=== PATIENT | female | born 1945 | race Caucasian/White ===

== ENCOUNTER 2020-05-02 08:21 | Outpatient (CLI) | payer MEDICARE, SELFPAY ==
[2020-05-02 08:45] LABS: Basophils Absolute Auto 0.04 K/mm3 (0.00-0.10); Basophils Percent Auto 0.8 % (0.0-1.0); Eosinophils Absolute Auto 0.11 K/mm3 (0.02-0.50); Eosinophils Percent Auto 2.2 % (1.0-6.0); Hemoglobin 14.7 g/dL (11.7-13.8); Immature Granulocyte Absolute 0.01 K/mm3 (0.00-0.00); Immature Granulocyte Percent A 0.2 % (0.0-0.0); Lymphocytes Absolute Auto 1.93 K/mm3 (1.10-4.50); Lymphocytes Percent Auto 39.1 % (18.0-42.0); Mean Corpuscular HGB Conc 34.2 g/dL (32.0-36.0); Mean Corpuscular Hemoglobin 31.6 pg (27.0-31.0); Mean Corpuscular Volume 92.5 fL (78.0-102.0); Mean Platelet Volume 10.1 fl (9.2-11.8); Monocytes Absolute Auto 0.58 K/mm3 (0.10-0.90); Monocytes Percent Auto 11.7 % (2.0-11.0); Neutrophils Absolute Auto 2.3 K/mm3 (1.7-7.2); Platelet Count Result 259 K/mm3 (150-420); Red Blood Count 4.65 M/mm3 (4.20-5.40); Red Cell Distribution Width 13.2 % (11.6-14.4); White Blood Count 4.9 K/mm3 (4.8-10.8)
[2020-05-02 08:46] LABS: Add Urine Microscopic? NO; Appearance Urine Clear (Clear); Bilirubin Urine Negative (Negative); Blood Urine Negative (Negative); Color Urine Yellow (Yellow); Glucose Urine UA Negative (Negative); Ketones Urine Negative (Negative); Leukocyte Esterase Ur Negative LEU/UL (Negative); Nitrate Urine Negative (Negative); Protein Urine Negative (Negative); Specific Grav Ur <= 1.005 (1.010-1.020); Urobilinogen Urine 0.2 mg/dL (0.2-1.0)
[2020-05-02 09:35] LABS: Alanine Aminotransferase 37 U/L (14-59); Albumin Level 3.8 g/dL (3.4-5.0); Alkaline Phosphatase 61 U/L (46-116); Anion Gap 10.1 mmol/L (7-16); Aspartate Amino Transferase 24 U/L (15-37); Bilirubin,Total 0.5 mg/dL (0.00-1.00); Blood Urea Nitrogen 16 mg/dL (7-18); Calcium 9.1 mg/dL (8.5-10.1); Carbon Dioxide 31 mmol/L (21-32); Chloride 106 mmol/L (98-108); Cholesterol 186 mg/dL (0-200); Creatine Kinase 79 U/L (26-192); Estimated Glomerular Filt Rate 59; Free T3 2.54 pg/mL (2.18-3.98); Free T4 Free Thyroxine 0.99 ng/dL (0.76-1.46); Glucose 104 mg/dL (70-99); HDL Direct 65 mg/dL (40-60); LDL Cholesterol Calculated 110 mg/dL (<130); Osmolality Calculated 297 mOsm/kg (285-295); Potassium 4.1 mmol/L (3.5-5.1); Sodium 143 mmol/L (136-145); Thyroid Stimulating Hormone 2.66 uIU/mL (0.36-3.74); Total Protein 6.5 g/dL (6.4-8.2); Triglycerides 55 mg/dL (0-150)
== END 2020-05-02 08:22 | disposition home or self-care (01) ==
PROVIDERS: PCP Internal Medicine; Visit Provider Internal Medicine
DX: E78.2 Mixed hyperlipidemia (principal); I10 Essential (primary) hypertension; R73.01 Impaired fasting glucose; E04.2 Nontoxic multinodular goiter; Z87.440 Personal history of urinary (tract) infections
CPT/HCPCS: 36415; 80053; 80061; 81003; 82550; 84439; 84443; 84481; 85025

== ENCOUNTER 2020-11-09 08:31 | Outpatient (CLI) | payer MEDICARE, SELFPAY ==
[2020-11-09 08:43] LABS: Basophils Absolute Auto 0.04 K/mm3 (0.00-0.10); Basophils Percent Auto 0.7 % (0.0-1.0); Eosinophils Absolute Auto 0.11 K/mm3 (0.02-0.50); Eosinophils Percent Auto 1.9 % (1.0-6.0); Hematocrit 40.9 % (35.0-42.0); Hemoglobin 13.5 g/dL (11.7-13.8); Immature Granulocyte Absolute 0.02 K/mm3 (0.00-0.00); Immature Granulocyte Percent A 0.3 % (0.0-0.0); Lymphocytes Absolute Auto 1.97 K/mm3 (1.10-4.50); Lymphocytes Percent Auto 34.4 % (18.0-42.0); Mean Corpuscular Hemoglobin 31.2 pg (27.0-31.0); Mean Corpuscular Volume 94.5 fL (78.0-102.0); Mean Platelet Volume 9.7 fl (9.2-11.8); Monocytes Absolute Auto 0.71 K/mm3 (0.10-0.90); Monocytes Percent Auto 12.4 % (2.0-11.0); Neutrophils Absolute Auto 2.9 K/mm3 (1.7-7.2); Neutrophils Percent Auto 50.3 % (50.0-70.0); Platelet Count Result 261 K/mm3 (150-420); Red Blood Count 4.33 M/mm3 (4.20-5.40); Red Cell Distribution Width 12.7 % (11.6-14.4); White Blood Count 5.7 K/mm3 (4.8-10.8)
[2020-11-09 09:04] LABS: Add Urine Microscopic? NO; Appearance Urine Clear (Clear); Bilirubin Urine Negative (Negative); Blood Urine Negative (Negative); Color Urine Yellow (Yellow); Glucose Urine UA Negative (Negative); Ketones Urine Negative (Negative); Leukocyte Esterase Ur Negative (Negative); Nitrate Urine Negative (Negative); Protein Urine Negative (Negative); Urobilinogen Urine 0.2 mg/dL (0.2-1.0)
[2020-11-09 09:05] LABS: Hemoglobin A1C 5.2 % (<5.7)
[2020-11-09 09:46] LABS: Alanine Aminotransferase 26 U/L (14-59); Albumin Level 3.7 g/dL (3.4-5.0); Alkaline Phosphatase 67 U/L (46-116); Anion Gap 7 mmol/L (8-16); Aspartate Amino Transferase 18 U/L (15-37); Bilirubin,Total 0.5 mg/dL (0.00-1.00); Blood Urea Nitrogen 15 mg/dL (7-18); Calcium 9.2 mg/dL (8.5-10.1); Carbon Dioxide 28 mmol/L (21-32); Chloride 105 mmol/L (98-108); Creatine Kinase 66 U/L (26-192); Estimated Glomerular Filt Rate 57; Free T4 Free Thyroxine 0.93 ng/dL (0.76-1.46); Glucose 96 mg/dL (70-99); HDL Direct 68 mg/dL (40-60); Osmolality Calculated 290 mOsm/kg (285-295); Potassium 4.2 mmol/L (3.5-5.1); Sodium 140 mmol/L (136-145); Thyroid Stimulating Hormone 2.35 uIU/mL (0.36-3.74); Total Protein 6.4 g/dL (6.4-8.2); Triglycerides 54 mg/dL (0-150)
[2020-11-09 10:11] LABS: Cholesterol 178 mg/dL (0-200); LDL Cholesterol Calculated 99 mg/dL (<130)
[2020-11-14 13:04] LABS: Vitamin D 25 Hydroxy 69 ng/mL (30-100)
== END 2020-11-09 08:32 | disposition home or self-care (01) ==
LOC: CHSLAB 08:33
PROVIDERS: PCP Internal Medicine; Visit Provider Internal Medicine
DX: R73.01 Impaired fasting glucose (principal); E78.2 Mixed hyperlipidemia; M81.0 Age-related osteoporosis without current pathological fracture; E04.2 Nontoxic multinodular goiter; N39.0 Urinary tract infection, site not specified
CPT/HCPCS: 36415; 80053; 80061; 81003; 82306; 82550; 83036; 84439; 84443; 84481; 85025; 87077; 87086; 87088; 87186

== ENCOUNTER 2020-11-13 07:59 | Outpatient (CLI) | payer MEDICARE, SELFPAY ==
--- NOTE | ~2020-11-13 | DEXA_ITS ---
Bone Density Report Name: Alissa Perez Age: 75 Sex: Female Ethnicity: White Date of : 1945 Indication: osteopenia; Referring Provider: Dixon Rice Study: Bone densitometry was performed. Exam Date: November 13, 2020 Accession number: [id number] Bone Density: Region BMD T-score Z-score Classification AP Spine(L1-L4) 1.130 0.8 3.1 Normal Femoral Neck (Left) 0.669 -1.6 0.4 Osteopenia Total Hip (Left) 0.766 -1.4 0.3 Osteopenia Femoral Neck (Right) 0.657 -1.7 0.3 Osteopenia Total Hip (Right) 0.775 -1.4 0.3 Osteopenia Femoral Neck Mean 0.663 -1.7 0.3 Osteopenia Total Hip Mean 0.770 -1.4 0.3 Osteopenia World Health Organization criteria for BMD impression classify patients as: Normal (T-score at or above -1.0), Osteopenia (T-score between -1.0 and -2.5), or Osteoporosis (T-score at or below -2.5). 10-year Fracture Risk(1): Major Osteoporotic Fracture 11% Hip Fracture 2.3% Reported Risk Factors: [place] (), Neck BMD=0.657, BMI=29.5 (1) FRAX(R) Version 3.08. Fracture probability calculated for an untreated patient. Fracture probability may be lower if the patient has received treatment. Previous Exams: Region Exam Age BMD T-score BMD Change BMD Change Date g/cm2 vs Baseline vs Previous AP Spine (L1-L4) 11/13/2020 75 1.130 0.8 0.012 (1.1%)# 0.012 (1.1%)# 11/11/2018 73 1.118 0.6 Total Hip(Left) 11/13/2020 75 0.766 -1.4 -0.013 (-1.7%) -0.013 (-1.7%) 11/11/2018 73 0.780 -1.3 Total Hip(Right) 11/13/2020 75 0.775 -1.4 -0.014 (-1.7%) -0.014 (-1.7%) 11/11/2018 73 0.788 -1.3 *Denotes significance at 95% confidence level, LSC for AP Spine = 0.022 g/cm2, LSC for Total Hip = 0.027 g/cm2 # Denotes dissimilar scan types or analysis methods Clinical Information Provided by Patient: Has used the following medications: Vitamin D Patient maximum height was 69 Drinks caffeinated beverages Onset of menses at age 14 Number of children 3 Impression: The patient has low bone mass, based on the Right Femoral Neck T-score. No significant bone loss was observed. Discussion: BONE DENSITY IS LOW AT ONE OR MORE SKELETAL SITES. This patient's lowest T-score is low at one or more skeletal sites. It meets the World Health Organization's (WHO) criteria for ?low bone mass? (T-score between -1.0 and -2.5). The patient's 10-year risk of fracture as calculated by FRAX is less
--- NOTE | ~2020-11-13 | MM_ITS ---
EXAMINATION: MM screening dayo BI w cortes HISTORY: Screening mammogram TECHNIQUE: Craniocaudal and mediolateral oblique 3-D tomosynthesis images were obtained and synthetic 2-D images were generated. CAD analysis was submitted and interpreted. COMPARISON: 11/12/2019, 11/11/2018, 10/15/2017, 10/10/2015 bilateral digital screening mammogram exam inations BREAST PARENCHYMAL COMPOSITION: There are scattered areas of fibroglandular density. FINDINGS: Stable mild increased density in the right subareolar area since 10/10/2015. There is no ev idence of suspicious mass, calcification, or architectural distortion to suggest malignancy in either breast. There has been no suspicious interval change. IMPRESSION: 1. No mammographic evidence of malignancy. 2. Recommend routine screening mammography in one year. BI-RADS Category 2: Benign finding(s). Reviewed, dictated and finalized at location A. 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
--- NOTE | ~2020-11-13 | US_ITS ---
EXAMINATION: US carotid duplex BI DATE: 11/13/2020 10:19 INDICATION: Bilateral carotid stenosis. TECHNIQUE: Grayscale, color Doppler, and pulsed Doppler images of the cervical carotid arteries were obtained. The degree of vessel stenosis is placed in one of the following categories: normal, <50%, 5 0-69%, >=70% but less than near-occlusion, near-occlusion, or total occlusion. Note that percent sten osis relative to normal distal artery lumen diameter is indirectly measured from velocity measurement s as described by León, et al. Radiology 2003; 229:340-346. COMPARISON: Ultrasound 11/30/2018 FINDINGS: RIGHT: The right common carotid artery (CCA) peak systolic velocity (PSV) is 108 cm/s. The right internal ca rotid artery (ICA) PSV is 107 cm/s. The right ICA end-diastolic velocity (EDV) is 35 cm/s. The right ICA/CCA PSV ratio is 1.0. Grayscale and color Doppler images yield an estimate of <50% diameter reduc tion from plaque in the ICA. There is antegrade flow in the right vertebral artery. LEFT: The left CCA PSV is 89 cm/s. The left ICA PSV is 117 cm/s. The left ICA EDV is 33 cm/s. The left ICA/ CCA PSV ratio is 1.3. Grayscale and color Doppler images yield an estimate of <50% diameter reduction from plaque in the ICA. There is antegrade flow in the left vertebral artery. IMPRESSION: 1. <50% stenosis in the right internal carotid artery. 2. <50% stenosis in the left internal carotid artery. Reviewed, dictated and finalized at location A. 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
== END 2020-11-13 08:00 | disposition home or self-care (01) ==
LOC: CHSIMG 08:01
PROVIDERS: PCP Internal Medicine; Visit Provider Internal Medicine
DX: M81.0 Age-related osteoporosis without current pathological fracture (principal); I65.23 Occlusion and stenosis of bilateral carotid arteries; Z12.31 Encounter for screening mammogram for malignant neoplasm of breast
CPT/HCPCS: 77063; 77067; 77080; 93880

== ENCOUNTER 2021-05-10 08:55 | Outpatient (CLI) | payer MEDICARE, SELFPAY ==
[2021-05-10 09:08] LABS: Add Urine Microscopic? NO; Appearance Urine Clear (Clear); Bilirubin Urine Negative (Negative); Blood Urine Negative (Negative); Color Urine Light Yellow (Yellow); Glucose Urine UA Negative (Negative); Ketones Urine Negative (Negative); Leukocyte Esterase Ur Negative LEU/UL (Negative); Nitrate Urine Negative (Negative); Protein Urine Negative (Negative); Urobilinogen Urine 0.2 mg/dL (0.2-1.0)
[2021-05-10 09:20] LABS: Hemoglobin A1C 5.5 % (<5.7)
[2021-05-10 09:55] LABS: Alanine Aminotransferase 41 U/L (14-59); Albumin Level 3.7 g/dL (3.4-5.0); Alkaline Phosphatase 72 U/L (46-116); Anion Gap 11 mmol/L (8-16); Aspartate Amino Transferase 21 U/L (15-37); Bilirubin,Total 0.5 mg/dL (0.00-1.00); Blood Urea Nitrogen 17 mg/dL (7-18); Calcium 9.1 mg/dL (8.5-10.1); Carbon Dioxide 27 mmol/L (21-32); Chloride 104 mmol/L (98-108); Cholesterol 188 mg/dL (0-200); Creatine Kinase 72 U/L (26-192); Estimated Glomerular Filt Rate 60; Glucose 103 mg/dL (70-99); HDL Direct 69 mg/dL (40-60); LDL Cholesterol Calculated 110 mg/dL (<130); Osmolality Calculated 295 mOsm/kg (285-295); Potassium 4.2 mmol/L (3.5-5.1); Sodium 142 mmol/L (136-145); Total Protein 6.5 g/dL (6.4-8.2); Triglycerides 44 mg/dL (0-150)
== END 2021-05-10 08:56 | disposition home or self-care (01) ==
LOC: CHSLAB 08:57
PROVIDERS: PCP Internal Medicine; Visit Provider Internal Medicine
DX: I10 Essential (primary) hypertension (principal); E78.2 Mixed hyperlipidemia; R73.01 Impaired fasting glucose; N39.0 Urinary tract infection, site not specified
CPT/HCPCS: 36415; 80053; 80061; 81003; 82550; 83036

== ENCOUNTER 2021-09-05 12:49 | Outpatient (CLI) | payer MEDICARE, SELFPAY | END 2021-09-05 12:50 | disposition home or self-care (01) | LOC: CHSAUDIO 12:52 | PROVIDERS: PCP Internal Medicine; Visit Provider Internal Medicine | DX: H91.93 Unspecified hearing loss, bilateral (principal) | CPT/HCPCS: 92557; 92567 ==

== ENCOUNTER 2021-11-12 08:07 | Outpatient (CLI) | payer MEDICARE, SELFPAY ==
[2021-11-12 08:22] LABS: Add Urine Microscopic? NO; Appearance Urine Clear (Clear); Bilirubin Urine Negative (Negative); Blood Urine Negative (Negative); Color Urine Light Yellow (Yellow); Glucose Urine UA Negative (Negative); Ketones Urine Negative (Negative); Leukocyte Esterase Ur Negative (Negative); Nitrate Urine Negative (Negative); Protein Urine Negative (Negative); Urobilinogen Urine 0.2 mg/dL (0.2-1.0); pH Urine 6.5 (5.0-8.0)
[2021-11-12 08:59] LABS: Hemoglobin A1C 5.7 % (<5.7)
[2021-11-12 09:17] LABS: Alanine Aminotransferase 34 U/L (14-59); Albumin Level 3.7 g/dL (3.4-5.0); Alkaline Phosphatase 77 U/L (46-116); Anion Gap 7 mmol/L (8-16); Aspartate Amino Transferase 19 U/L (15-37); Bilirubin,Total 0.6 mg/dL (0.00-1.00); Blood Urea Nitrogen 14 mg/dL (7-18); Calcium 9.3 mg/dL (8.5-10.1); Carbon Dioxide 31 mmol/L (21-32); Chloride 106 mmol/L (98-108); Cholesterol 194 mg/dL (0-200); Creatine Kinase 67 U/L (26-192); Estimated Glomerular Filt Rate 52; Free T3 2.31 pg/mL (2.18-3.98); Free T4 Free Thyroxine 0.93 ng/dL (0.76-1.46); Glucose 99 mg/dL (70-99); HDL Direct 65 mg/dL (40-60); LDL Cholesterol Calculated 117 mg/dL (<130); Osmolality Calculated 298 mOsm/kg (285-295); Sodium 144 mmol/L (136-145); Thyroid Stimulating Hormone 2.34 uIU/mL (0.36-3.74); Total Protein 6.7 g/dL (6.4-8.2); Triglycerides 60 mg/dL (0-150)
[2021-11-15 10:52] LABS: Vitamin D 25 Hydroxy 71 ng/mL (30-100)
== END 2021-11-12 08:08 | disposition home or self-care (01) ==
LOC: CHSLAB 08:09
PROVIDERS: PCP Internal Medicine; Visit Provider Internal Medicine
DX: E78.2 Mixed hyperlipidemia (principal); I10 Essential (primary) hypertension; R73.01 Impaired fasting glucose; E04.2 Nontoxic multinodular goiter; M81.0 Age-related osteoporosis without current pathological fracture; N39.0 Urinary tract infection, site not specified
CPT/HCPCS: 36415; 80053; 80061; 81003; 82306; 82550; 83036; 84439; 84443; 84481; 87086; 87088

== ENCOUNTER 2021-11-14 08:27 | Outpatient (CLI) | payer MEDICARE, SELFPAY ==
--- NOTE | ~2021-11-14 | MM_ITS ---
EXAMINATION: MM screening dayo BI w cortes HISTORY: Screening mammogram TECHNIQUE: Craniocaudal and mediolateral oblique 3-D tomosynthesis images were obtained and synthetic 2-D images were generated. CAD analysis was submitted and interpreted. COMPARISON: 11/13/2020, 11/12/2019, 11/11/2018 bilateral screening mammogram examinations BREAST PARENCHYMAL COMPOSITION: There are scattered areas of fibroglandular density. FINDINGS: Chronic mild asymmetric increased density in the right subareolar area since 10/10/2015. Th ere is no evidence of suspicious mass, calcification, or architectural distortion to suggest malignan cy in either breast. There has been no suspicious interval change. IMPRESSION: 1. No mammographic evidence of malignancy. 2. Recommend routine screening mammography in one year. BI-RADS Category 1: Negative Reviewed, dictated and finalized at location B. S BUSHELER
== END 2021-11-14 08:28 | disposition home or self-care (01) ==
LOC: CHSIMG 08:28
PROVIDERS: PCP Internal Medicine; Visit Provider Internal Medicine
DX: Z12.31 Encounter for screening mammogram for malignant neoplasm of breast (principal)
CPT/HCPCS: 77063; 77067

== ENCOUNTER 2022-05-14 08:50 | Outpatient (CLI) | payer MEDICARE, SELFPAY ==
[2022-05-14 09:16] LABS: Add Urine Microscopic? NO; Appearance Urine Clear (Clear); Basophils Absolute Auto 0.04 K/mm3 (0.00-0.10); Basophils Percent Auto 0.8 % (0.0-1.0); Bilirubin Urine Negative (Negative); Blood Urine Negative (Negative); Color Urine Light Yellow (Yellow); Eosinophils Absolute Auto 0.11 K/mm3 (0.02-0.50); Eosinophils Percent Auto 2.1 % (1.0-6.0); Glucose Urine UA Negative (Negative); Hematocrit 41.5 % (35.0-42.0); Hemoglobin 13.7 g/dL (11.7-13.8); Immature Granulocyte Absolute 0.02 K/mm3 (0.00-0.00); Immature Granulocyte Percent A 0.4 % (0.0-0.0); Ketones Urine Negative (Negative); Leukocyte Esterase Ur Negative (Negative); Lymphocytes Absolute Auto 1.69 K/mm3 (1.10-4.50); Lymphocytes Percent Auto 32.3 % (18.0-42.0); Mean Corpuscular Volume 93.9 fL (78.0-102.0); Mean Platelet Volume 9.8 fl (9.2-11.8); Monocytes Absolute Auto 0.59 K/mm3 (0.10-0.90); Monocytes Percent Auto 11.3 % (2.0-11.0); Neutrophils Absolute Auto 2.8 K/mm3 (1.7-7.2); Neutrophils Percent Auto 53.1 % (50.0-70.0); Nitrate Urine Negative (Negative); Platelet Count Result 237 K/mm3 (150-420); Protein Urine Negative (Negative); Red Blood Count 4.42 M/mm3 (4.20-5.40); Urobilinogen Urine 0.2 mg/dL (0.2-1.0); White Blood Count 5.2 K/mm3 (4.8-10.8)
[2022-05-14 09:34] LABS: Hemoglobin A1C 5.6 % (<5.7)
[2022-05-14 09:55] LABS: Alanine Aminotransferase 29 U/L (14-59); Albumin Level 3.6 g/dL (3.4-5.0); Alkaline Phosphatase 65 U/L (46-116); Anion Gap 6 mmol/L (8-16); Aspartate Amino Transferase 21 U/L (15-37); Bilirubin,Total 0.6 mg/dL (0.00-1.00); Blood Urea Nitrogen 15 mg/dL (7-18); Carbon Dioxide 28 mmol/L (21-32); Chloride 107 mmol/L (98-108); Cholesterol 172 mg/dL (0-200); Creatine Kinase 92 U/L (26-192); Estimated Glomerular Filt Rate 55; Free T3 2.42 pg/mL (2.18-3.98); Free T4 Free Thyroxine 1.03 ng/dL (0.76-1.46); Glucose 92 mg/dL (70-99); HDL Direct 67 mg/dL (40-60); LDL Cholesterol Calculated 96 mg/dL (<130); Osmolality Calculated 292 mOsm/kg (285-295); Sodium 141 mmol/L (136-145); Thyroid Stimulating Hormone 2.67 uIU/mL (0.36-3.74); Total Protein 6.4 g/dL (6.4-8.2); Triglycerides 45 mg/dL (0-150)
[2022-05-17 15:11] LABS: Vitamin D 25 Hydroxy 77 ng/mL (30-100)
== END 2022-05-14 08:51 | disposition home or self-care (01) ==
LOC: CHSLAB 08:53
PROVIDERS: PCP Internal Medicine; Visit Provider Internal Medicine
DX: E04.2 Nontoxic multinodular goiter (principal); I10 Essential (primary) hypertension; R73.01 Impaired fasting glucose; M81.0 Age-related osteoporosis without current pathological fracture; Z87.440 Personal history of urinary (tract) infections; N39.0 Urinary tract infection, site not specified
CPT/HCPCS: 36415; 80053; 80061; 81003; 82306; 82550; 83036; 84439; 84443; 84481; 85025; 87086; 87088

== ENCOUNTER 2022-05-29 14:23 | Outpatient (CLI) | payer MEDICARE, SELFPAY ==
--- NOTE | ~2022-05-29 | XR_ITS ---
XR shoulder LT min 2V DATE: 05/29/2022 15:27 INDICATION: Chronic left shoulder pain, worse for the past 3 months. No known injury. TECHNIQUE: 4 views COMPARISON: None FINDINGS: Diffuse osteopenia. No fracture or dislocation, periosteal reaction or bone destruction. There is mild degenerative change at the acromioclavicular joint. There is mild glenohumeral osteoart hritis. IMPRESSION: Osteopenia Mild glenohumeral osteoarthritic arthritis Mild degenerative change at the left acromioclavicular joint Reviewed, dictated and finalized at location A.
== END 2022-05-29 14:24 | disposition home or self-care (01) ==
LOC: CHSIMG 14:26
PROVIDERS: PCP Internal Medicine; Visit Provider Internal Medicine
DX: M25.512 Pain in left shoulder (principal); E04.1 Nontoxic single thyroid nodule
CPT/HCPCS: 73030

== ENCOUNTER 2022-06-10 09:50 | Outpatient (CLI) | payer MEDICARE, SELFPAY ==
--- NOTE | ~2022-06-10 | US_ITS ---
EXAMINATION: US thyroid DATE: 06/10/2022 10:25 INDICATION: Thyroid nodule. TECHNIQUE: Multiple ultrasound images of the thyroid were obtained. COMPARISON: Ultrasound 06/01/2019, 04/06/2013 FINDINGS: The right thyroid lobe measures 3.6 x 3.4 x 8.1 cm. The left thyroid lobe measures 4.5 x 3.1 x 7.7 c m. In the left thyroid lobe, there is a 5.0 cm mixed cystic and solid, isoechoic, wider than tall no dule with ill-defined margin without echogenic foci (TI-RADS TR2). In the right thyroid lobe, there i s a 2.1 cm solid, hypoechoic, wider than tall nodule with smooth margin without echogenic foci (TR4). In the right thyroid lobe, there is a 3.0 cm solid, hypoechoic, wider than tall nodule with lobulate d margin and macrocalcifications (TR5). IMPRESSION: 1. Multinodular goiter, stable from 04/06/2013, likely benign. No follow-up is needed. Reviewed, dictated and finalized at location A. IMPRESSION: 1. Multinodular goiter, stable from 04/06/2013, likely benign. No follow-up is n eeded.
== END 2022-06-10 09:51 | disposition home or self-care (01) ==
LOC: CHSIMG 09:52
PROVIDERS: PCP Internal Medicine; Visit Provider Internal Medicine
DX: E04.1 Nontoxic single thyroid nodule (principal)
CPT/HCPCS: 76536

== ENCOUNTER 2022-11-13 08:53 | Outpatient (CLI) | payer MEDICARE, SELFPAY ==
[2022-11-13 09:10] LABS: Add Urine Microscopic? YES; Appearance Urine Clear (Clear); Bilirubin Urine Negative (Negative); Blood Urine Negative (Negative); Color Urine Light Yellow (Yellow); Glucose Urine UA Negative (Negative); Ketones Urine Negative (Negative); Leukocyte Esterase Ur Trace (Negative); Nitrate Urine Negative (Negative); Protein Urine Negative (Negative); Urobilinogen Urine 0.2 mg/dL (0.2-1.0)
[2022-11-13 09:16] LABS: Bacteria Urine None seen /hpf; RBC Urine None seen /hpf (0-2); Squamous Epithelial Cell Urine Rare /hpf (Few); WBC Urine None seen /hpf (0-3)
[2022-11-13 09:34] LABS: Hemoglobin A1C 5.5 % (<5.7)
[2022-11-13 10:33] LABS: Alanine Aminotransferase 29 U/L (14-59); Albumin Level 3.9 g/dL (3.4-5.0); Alkaline Phosphatase 64 U/L (46-116); Anion Gap 7 mmol/L (8-16); Aspartate Amino Transferase 22 U/L (15-37); Bilirubin,Total 0.6 mg/dL (0.00-1.00); Blood Urea Nitrogen 17 mg/dL (7-18); Carbon Dioxide 29 mmol/L (21-32); Chloride 107 mmol/L (98-108); Cholesterol 182 mg/dL (0-200); Creatine Kinase 78 U/L (26-192); Estimated Glomerular Filt Rate 55; Free T4 Free Thyroxine 1.06 ng/dL (0.76-1.46); Glucose 94 mg/dL (70-99); HDL Direct 70 mg/dL (40-60); LDL Cholesterol Calculated 103 mg/dL (<130); Osmolality Calculated 297 mOsm/kg (285-295); Sodium 143 mmol/L (136-145); Total Protein 6.5 g/dL (6.4-8.2); Triglycerides 46 mg/dL (0-150)
== END 2022-11-13 08:54 | disposition home or self-care (01) ==
LOC: CHSLAB 08:55
PROVIDERS: PCP Internal Medicine; Visit Provider Internal Medicine
DX: I10 Essential (primary) hypertension (principal); E78.2 Mixed hyperlipidemia; E06.2 Chronic thyroiditis with transient thyrotoxicosis; R73.01 Impaired fasting glucose
CPT/HCPCS: 36415; 80053; 80061; 81001; 82550; 83036; 84439; 84443; 84481

== ENCOUNTER 2022-11-20 08:22 | Outpatient (CLI) | payer MEDICARE, SELFPAY ==
--- NOTE | ~2022-11-20 | MM_ITS ---
EXAMINATION: MM screening dayo BI w cortes HISTORY: Screening mammogram TECHNIQUE: Craniocaudal and mediolateral oblique 3-D tomosynthesis images were obtained and synthetic 2-D images were generated. CAD analysis was submitted and interpreted. COMPARISON: 11/14/2021, 11/13/2020, 11/12/2019, 11/11/2018 bilateral screening mammogram examinations BREAST PARENCHYMAL COMPOSITION: There are scattered areas of fibroglandular density. FINDINGS: Chronic stable mild asymmetric fibroglandular stroma in the subareolar area of the right br east, unchanged since 11/12/2019 and 11/11/2018. There is no evidence of suspicious mass, calcificati on, or architectural distortion to suggest malignancy in either breast. There has been no suspicious interval change. IMPRESSION: 1. No mammographic evidence of malignancy. 2. Recommend routine screening mammography in one year. BI-RADS Category 1: Negative Reviewed, dictated and finalized at location A. 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
== END 2022-11-20 08:23 | disposition home or self-care (01) ==
LOC: CHSIMG 08:23
PROVIDERS: PCP Internal Medicine; Visit Provider Internal Medicine
DX: Z12.31 Encounter for screening mammogram for malignant neoplasm of breast (principal)
CPT/HCPCS: 77063; 77067

== ENCOUNTER 2023-12-04 14:27 | Outpatient (CLI) | payer MEDICARE, SELFPAY ==
--- NOTE | ~2023-12-04 | MM_ITS ---
EXAMINATION: MM screening [facility] BI w cortes HISTORY: Screening mammogram TECHNIQUE: Craniocaudal and mediolateral oblique 3-D tomosynthesis images were obtained and synthetic 2-D images were generated. CAD analysis was submitted and interpreted. COMPARISON: 11/20/2022, 11/14/2021, 11/13/2020 BREAST PARENCHYMAL COMPOSITION: There are scattered areas of fibroglandular density. FINDINGS: Stable focal asymmetry in the subareolar aspect of the right breast is considered benign gi jocelyn the lack of interval change. No suspicious mass, calcification, or architectural distortion are i dentified in either breast to suggest malignancy. There has been no suspicious interval change. IMPRESSION: 1. No mammographic evidence of malignancy. 2. Recommend routine screening mammography in one year. BI-RADS Category 2: Benign finding(s). Reviewed, dictated and finalized at location A. 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
== END 2023-12-04 14:28 | disposition home or self-care (01) ==
LOC: CHSIMG 14:28
PROVIDERS: PCP Internal Medicine; Visit Provider Internal Medicine
DX: Z12.31 Encounter for screening mammogram for malignant neoplasm of breast (principal)
CPT/HCPCS: 77063; 77067

== ENCOUNTER 2023-12-10 08:49 | Outpatient (CLI) | payer MEDICARE, SELFPAY ==
[2023-12-10 09:06] LABS: Basophils Absolute Auto 0.04 K/mm3 (0.00-0.10); Basophils Percent Auto 0.7 % (0.0-1.0); Eosinophils Absolute Auto 0.13 K/mm3 (0.02-0.50); Eosinophils Percent Auto 2.2 % (1.0-6.0); Hematocrit 42.8 % (35.0-42.0); Hemoglobin 13.9 g/dL (11.7-13.8); Immature Granulocyte Absolute 0.02 K/mm3 (0.00-0.00); Immature Granulocyte Percent A 0.3 % (0.0-0.0); Lymphocytes Absolute Auto 2.08 K/mm3 (1.10-4.50); Lymphocytes Percent Auto 35.6 % (18.0-42.0); Mean Corpuscular HGB Conc 32.5 g/dL (32.0-36.0); Mean Corpuscular Hemoglobin 30.5 pg (27.0-31.0); Mean Corpuscular Volume 93.9 fL (78.0-102.0); Mean Platelet Volume 9.1 fl (9.2-11.8); Monocytes Absolute Auto 0.74 K/mm3 (0.10-0.90); Monocytes Percent Auto 12.6 % (2.0-11.0); Neutrophils Absolute Auto 2.8 K/mm3 (1.7-7.2); Neutrophils Percent Auto 48.6 % (50.0-70.0); Platelet Count Result 258 K/mm3 (150-420); Red Blood Count 4.56 M/mm3 (4.20-5.40); White Blood Count 5.9 K/mm3 (4.8-10.8)
[2023-12-10 09:07] LABS: Appearance Urine Clear (Clear); Bilirubin Urine Negative (Negative); Blood Urine Negative (Negative); Color Urine Light Yellow (Yellow); Glucose Urine UA Negative (Negative); Ketones Urine Negative (Negative); Leukocyte Esterase Ur Negative LEU/UL (Negative); Nitrate Urine Negative (Negative); Protein Urine Negative (Negative); Urobilinogen Urine 0.2 mg/dL (0.2-1.0)
[2023-12-10 09:25] LABS: Add Urine Microscopic? NO
[2023-12-10 09:32] LABS: Hemoglobin A1C 5.6 % (<5.7)
[2023-12-10 09:57] LABS: Alanine Aminotransferase 25 U/L (14-59); Albumin Level 3.8 g/dL (3.4-5.0); Alkaline Phosphatase 44 U/L (46-116); Anion Gap 7 mmol/L (8-16); Aspartate Amino Transferase 21 U/L (15-37); Bilirubin,Total 0.7 mg/dL (0.00-1.00); Blood Urea Nitrogen 20 mg/dL (7-18); Calcium 8.9 mg/dL (8.5-10.1); Carbon Dioxide 29 mmol/L (21-32); Chloride 103 mmol/L (98-108); Cholesterol 192 mg/dL (0-200); Creatine Kinase 69 U/L (26-192); Estimated Glomerular Filt Rate 57; Free T4 Free Thyroxine 1.08 ng/dL (0.76-1.46); Glucose 98 mg/dL (70-99); HDL Direct 74 mg/dL (40-60); LDL Cholesterol Calculated 111 mg/dL (<130); Osmolality Calculated 290 mOsm/kg (285-295); Potassium 4.3 mmol/L (3.5-5.1); Sodium 139 mmol/L (136-145); Total Protein 6.6 g/dL (6.4-8.2); Triglycerides 33 mg/dL (0-150)
[2023-12-11 12:28] LABS: Free T3 2.34 pg/mL (2.18-3.98)
== END 2023-12-10 08:50 | disposition home or self-care (01) ==
LOC: CHSLAB 08:52
PROVIDERS: PCP Internal Medicine; Visit Provider Internal Medicine
DX: M81.0 Age-related osteoporosis without current pathological fracture (principal); I10 Essential (primary) hypertension; E78.2 Mixed hyperlipidemia; R73.01 Impaired fasting glucose; E06.2 Chronic thyroiditis with transient thyrotoxicosis; Z87.440 Personal history of urinary (tract) infections
CPT/HCPCS: 36415; 80053; 80061; 81003; 82550; 83036; 84439; 84443; 84481; 85025

== ENCOUNTER 2024-02-05 01:04 | Day surgery (SDC) | payer MEDICARE, SELFPAY ==
[2024-01-26 14:54] VITALS: BMI 34.0
--- NOTE | 2024-02-03 09:14 | SUR.PREOP ---
Patient called regarding upcoming procedure. Reviewed preop instructions, appointment times, and procedure prep.
[2024-02-05 07:12] VITALS: BP 145/80; PULSE 68; RESP 18; TEMP 36.6; O2SAT 97
[2024-02-05] MEDS: LACTATED RINGERS 1,000 ML 150 ML IV CONT (07:32)
--- NOTE | 2024-02-05 08:02 | P.PNAN_ITS ---
Anes - Initial Pre Proc Eval Procedure: Operation Date: 02/05/24 08:30 Proposed Procedures p Screening Colonoscopy - Tiburcio Bull DO Date/Time: 02/05/24 08:02 Surgeon: Tiburcio Bull DO Pre Op Diagnosis: neoplasm screening Patient Data Age: 78 Gender: F Height: 1.75 m Weight: 107.9 kg Last Vital Signs Temp 97.8 F 02/05/24 07:12 Pulse 68 02/05/24 07:12 Resp 18 02/05/24 07:12 BP 145/80 H 02/05/24 07:12 Pulse Ox 97 02/05/24 07:12 O2 Del Method Room Air 02/05/24 07:12 Allergies Allergy/AdvReac Type Severity Reaction Status Date / Time No Known Allergies Allergy Verified 02/05/24 07:11 Home Medications Medication Instructions Recorded Confirmed Type aspirin 81 mg chewable tablet 81 mg PO DAILY 01/26/24 01/26/24 History atenolol 100 mg tablet 50 mg PO DAILY 01/26/24 02/05/24 History diltiazem HCl 180 mg 180 mg PO DAILY 01/26/24 01/26/24 History capsule,extended release 24 hr (Cardizem CD) losartan 25 mg tablet (Cozaar) 25 mg PO DAILY 01/26/24 01/26/24 History omeprazole 20 mg tablet,delayed 20 mg PO DAILY 01/26/24 01/26/24 History release potassium chloride 10 mEq 10 meq PO DAILY 01/26/24 01/26/24 History tablet,extended release pravastatin 20 mg tablet 20 mg PO HS 01/26/24 01/26/24 History spironolactone 50 mg tablet 50 mg PO DAILY 01/26/24 01/26/24 History (Aldactone) sulfamethoxazole 200 5 ml PO DAILY 01/26/24 01/26/24 History mg-trimethoprim 40 mg/5 mL oral suspension Patient hx anesthesia problems: none Family hx anesthesia problems: none Results Review: All pre-operative results and documents have been reviewed as part of the pre- operative evaluation. [facility] Social History Social History Smoking packs per day: 0.5 Smoking cigarettes per day: 10.0 Smoking status: Former smoker Tobacco type: cigarettes Anes - Eval Final PreProcedure Day of Procedure 02/05/24 08:02 Patient weight: obese Heart: regular rate and rhythm Lungs: clear to auscultation Airway: Mallampati scale class II Neurological: alert and oriented Last oral intake: >/= 8 hours ASA classification: III Emergent: no Anesthetic plan: proceed Anesthesia type and monitoring: general GIVS and standard monitoring Results Review: All pre-operative results and documents have been reviewed as part of the pre- operative evaluation. Informed Consent: The patient's anesthetic plan and its attendant risks and benefits were discussed with the patient/family/POA. Questions were solicited and answers provided to the satisfaction of the patient/family/POA.
--- NOTE | 2024-02-05 08:32 | PM.IMHP ---
H&P: HPI History of Present Illness Date/Time: 02/05/24 08:32 Chief Complaint: Screening for colorectal cancer Narrative: this is a 78-year-old woman who presents for colonoscopy. Her last colonoscopy was about 10 years ago. She denies any hematochezia or melena. She denies family history of colon cancer. Review of Systems Review of Systems: All systems reviewed & are unremarkable except as noted in HPI and below Constitutional: Constitutional: Denies chills, Denies fever(s), Denies headache(s) and Denies weight loss Eyes: Eyes: Denies change in vision ENT: Denies dizziness, Denies headache(s), Denies neck mass and Denies throat swelling Cardiovascular: Cardiovascular: Denies chest pain, Denies lightheadedness and Denies dyspnea Respiratory: Respiratory: Denies cough, Denies dyspnea and Denies wheezing Gastrointestinal: Gastrointestinal: Denies abdominal pain, Denies change in bowel habits, Denies nausea and Denies vomiting Genitourinary: Genitourinary: Denies hematuria and Denies dysuria Musculoskeletal: Musculoskeletal: Reports as per HPI Integumentary/Breasts: Skin/Breast: Reports as per HPI Neurologic: Denies dizziness and Denies headache(s) Allergic/Immunologic: Allergic/Immunologic: Denies throat swelling and Denies wheezing PMFSH Social History Social History Smoking packs per day: 0.5 Smoking cigarettes per day: 10.0 Smoking status: Former smoker Tobacco type: cigarettes Meds Home Medications and Allergies Home Medications Medication Instructions Recorded Confirmed Type aspirin 81 mg chewable tablet 81 mg PO DAILY 01/26/24 01/26/24 History atenolol 100 mg tablet 50 mg PO DAILY 01/26/24 02/05/24 History diltiazem HCl 180 mg 180 mg PO DAILY 01/26/24 01/26/24 History capsule,extended release 24 hr (Cardizem CD) losartan 25 mg tablet (Cozaar) 25 mg PO DAILY 01/26/24 01/26/24 History omeprazole 20 mg tablet,delayed 20 mg PO DAILY 01/26/24 01/26/24 History release potassium chloride 10 mEq 10 meq PO DAILY 01/26/24 01/26/24 History tablet,extended release pravastatin 20 mg tablet 20 mg PO HS 01/26/24 01/26/24 History spironolactone 50 mg tablet 50 mg PO DAILY 01/26/24 01/26/24 History (Aldactone) sulfamethoxazole 200 5 ml PO DAILY 01/26/24 01/26/24 History mg-trimethoprim 40 mg/5 mL oral suspension Allergies Allergy/AdvReac Type Severity Reaction Status Date / Time No Known Allergies Allergy Verified 02/05/24 07:11 Vital Signs Vital Signs - 24 hr 02/05/24 07:12 Temperature 36.6 C Pulse Rate 68 Respiratory Rate 18 Blood Pressure 145/80 H Pulse Oximetry 97 Oxygen Delivery Room Air Exam Const: General: no acute distress and alert Orientation/consciousness: patient oriented x3 HENMT: Head: normocephalic and atraumatic Ears: hearing grossly normal bilaterally Face/Nose/Sinus: Normal nares present Mouth: Yes Normal oral and palatal mucosa present Eyes: Periorbital: periorbital findings normal Sclera: sclerae normal EOM: EOMs intact bilaterally Neck: Neck: normal visual inspection, no lymphadenopathy and trachea midline Chest: Chest palpation & inspection: normal inspection of the chest Resp: Effort & Inspection: normal respiratory effort Auscultation: clear to auscultation bilaterally Cardio: Jugular venous distension: no JVD Rate: regular rate Rhythm: regular rhythm Heart sounds: S1 normal heart sound present and S2 normal heart sound present Peripheral pulses: Peripheral pulses 2+ throughout GI: Inspection: normal to inspection GI Palp: Yes Soft to palpation, No Tenderness to palpation present (GI), No Guarding due to palpation present (GI) and No Rebound tenderness present Percussion: Yes normal to percussion Auscultation: normal bowel sounds : General: Yes no CVA tenderness Back/Spine/Pelvis: Back: no CVA tenderness Neuro: General: patient oriented x3, no focal motor deficits and CN's II-XI intact bilaterally
[2024-02-05 09:08] VITALS: BP 118/64; PULSE 61; RESP 21; O2SAT 99
[2024-02-05 09:18] VITALS: BP 140/76; PULSE 60; RESP 14; O2SAT 100
[2024-02-05 09:28] VITALS: BP 147/70; PULSE 66; RESP 22; O2SAT 100
--- NOTE | 2024-02-06 11:57 | P.PNAN_ITS ---
Anes - Initial Pre Proc Eval Procedure: Operation Date: 02/05/24 08:30 Proposed Procedures p Screening Colonoscopy - Tiburcio Bull DO Date/Time: 02/06/24 11:57 Surgeon: Tiburcio Bull DO Pre Op Diagnosis: neoplasm screening Patient Data Age: 78 Gender: F Height: 1.75 m Weight: 107.9 kg Last Vital Signs Temp 97.8 F 02/05/24 07:12 Pulse 66 02/05/24 09:28 Resp 22 H 02/05/24 09:28 BP 147/70 H 02/05/24 09:28 Pulse Ox 100 02/05/24 09:28 O2 Del Method Room Air 02/05/24 09:28 Allergies Allergy/AdvReac Type Severity Reaction Status Date / Time No Known Allergies Allergy Verified 02/05/24 07:11 Home Medications Medication Instructions Recorded Confirmed Type aspirin 81 mg chewable tablet 81 mg PO DAILY 01/26/24 01/26/24 History atenolol 100 mg tablet 50 mg PO DAILY 01/26/24 02/05/24 History diltiazem HCl 180 mg 180 mg PO DAILY 01/26/24 01/26/24 History capsule,extended release 24 hr (Cardizem CD) losartan 25 mg tablet (Cozaar) 25 mg PO DAILY 01/26/24 01/26/24 History omeprazole 20 mg tablet,delayed 20 mg PO DAILY 01/26/24 01/26/24 History release potassium chloride 10 mEq 10 meq PO DAILY 01/26/24 01/26/24 History tablet,extended release pravastatin 20 mg tablet 20 mg PO HS 01/26/24 01/26/24 History spironolactone 50 mg tablet 50 mg PO DAILY 01/26/24 01/26/24 History (Aldactone) sulfamethoxazole 200 5 ml PO DAILY 01/26/24 01/26/24 History mg-trimethoprim 40 mg/5 mL oral suspension Patient hx anesthesia problems: none Family hx anesthesia problems: none Results Review: All pre-operative results and documents have been reviewed as part of the pre- operative evaluation. [facility] Social History Social History Smoking packs per day: 0.5 Smoking cigarettes per day: 10.0 Smoking status: Former smoker Tobacco type: cigarettes Anes - Eval Final PreProcedure Day of Procedure 02/06/24 11:57 Patient weight: obese Heart: regular rate and rhythm Lungs: clear to auscultation Airway: Mallampati scale class II Neurological: alert and oriented Last oral intake: >/= 8 hours ASA classification: III Emergent: no Anesthetic plan: proceed Anesthesia type and monitoring: general GIVS and standard monitoring Results Review: All pre-operative results and documents have been reviewed as part of the pre- operative evaluation. Informed Consent: The patient's anesthetic plan and its attendant risks and benefits were discussed with the patient/family/POA. Questions were solicited and answers provided to the satisfaction of the patient/family/POA.
== END 2024-02-05 09:40 | disposition home or self-care (01) ==
PROVIDERS: PCP Internal Medicine; Visit Provider Surgery
PROC: 0DJD8ZZ Inspection of Lower Intestinal Tract, Via Natural or Artificial Opening Endoscopic (ICD-10-PCS; CPT 45378; principal; 2024-02-05 08:30)
DX: Z12.11 Encounter for screening for malignant neoplasm of colon (principal); K57.30 Diverticulosis of large intestine without perforation or abscess without bleeding; E66.9 Obesity, unspecified; Z68.35 Body mass index [BMI] 35.0-35.9, adult; Z79.82 Long term (current) use of aspirin; Z87.891 Personal history of nicotine dependence
CPT/HCPCS: G0121; J7120

== ENCOUNTER 2024-02-25 12:19 | Outpatient (CLI) | payer MEDICARE, SELFPAY ==
--- NOTE | ~2024-02-25 | DEXA_ITS ---
? Bone Density Report? Name:? chelsea dominguez Patient ID:??? [id number] Age:? 78 Sex:? Female Ethnicity:? White Date of : 1945 Indication: postmenopausal; screening for osteoporosis; parental hip fracture; height loss; Referring Provider: Dixon Rice Study: Bone densitometry was performed. Exam Date: February 25, 2024 Accession number: [id number] Bone Density: Region? BMD??? T-score ?Z-score?? Classification AP Spine(L1-L4)? 1.134??? 0.8?3.3? Normal Femoral Neck (Left)? 0.648?? -1.8? 0.4? Osteopenia Total Hip (Left)? 0.780?? -1.3?0.6? Osteopenia Femoral Neck (Right)? 0.633?? -1.9? 0.2? Osteopenia Total Hip (Right)? 0.789?? -1.3? 0.6? Osteopenia Femoral Neck Mean? 0.640?? -1.9? 0.3? Osteopenia Total Hip Mean? 0.785?? -1.3?0.6? Osteopenia World Health Organization criteria for BMD impression classify patients as: Normal (T-score at or above -1.0), Osteopenia (T-score between -1.0 and -2.5), or Osteoporosis (T-score at or below -2.5). 10-year Fracture Risk: FRAX not reported because: ? Treated for osteoporosis Clinical Information Provided by Patient: Parent has had a hip fracture Is being treated for osteoporosis Has used the following medications: Evista (i.e. raloxifene), Prolia (i.e. denosumab), Vitamin D, multi Patient maximum height was 69.5 Menopause Age: 57 No regular weight bearing exercise Does not regularly consume dairy products Drinks caffeinated beverages Onset of menses at age 15 Number of children 3 Impression: The patient has low bone mass, based on the Right Femoral Neck T- score. The patient has risk factors, including: parental hip fracture. Discussion: It is important to ask patients whether they are taking their medications and to encourage continued and appropriate compliance with their osteoporosis therapies to reduce fracture risk. It is also important to review their risk factors and encourage appropriate calcium and vitamin D intakes, exercise, fall prevention and other lifestyle measures. Follow-Up: Consider a repeat BMD and Vertebral Fracture Assessment (VFA) exam in 2 years or sooner if medically necessary, to reassess this patient's status. Reported by: Dr. Rafi Lancaster on 03/09/2024 9:36:00 AM. MIKE
== END 2024-02-25 12:20 | disposition home or self-care (01) ==
LOC: CHSIMG 12:21
PROVIDERS: PCP Internal Medicine; Visit Provider Internal Medicine
DX: Z78.0 Asymptomatic menopausal state (principal); M85.89 Other specified disorders of bone density and structure, multiple sites
CPT/HCPCS: 77080

== ENCOUNTER 2024-06-12 08:20 | Outpatient (CLI) | payer MEDICARE, SELFPAY ==
[2024-06-12 08:50] LABS: Hematocrit 41.3 % (35.0-42.0); Hemoglobin 13.9 g/dL (11.7-13.8); Mean Corpuscular HGB Conc 33.7 g/dL (32-36); Mean Corpuscular Hemoglobin 31.4 pg (27.0-31.0); Mean Corpuscular Volume 93.4 fL (78.0-102.0); Mean Platelet Volume 9.6 fl (9.2-11.8); Platelet Count Result 244 K/mm3 (150-420); Red Blood Count 4.42 M/mm3 (4.20-5.40); White Blood Count 5.3 K/mm3 (4.8-10.8)
[2024-06-12 08:51] LABS: Appearance Urine Clear (Clear); Bilirubin Urine Negative (Negative); Blood Urine Negative (Negative); Color Urine Yellow (Yellow); Glucose Urine UA Negative (Negative); Ketones Urine Negative (Negative); Leukocyte Esterase Ur Negative LEU/UL (Negative); Nitrate Urine Negative (Negative); Protein Urine Negative (Negative); Specific Grav Ur 1.015 (1.010-1.020); Urobilinogen Urine 0.2 mg/dL (0.2-1.0)
[2024-06-12 08:54] LABS: Add Urine Microscopic? NO
[2024-06-12 08:59] LABS: Alanine Aminotransferase 32 U/L (14-59); Albumin Level 3.7 g/dL (3.4-5.0); Alkaline Phosphatase 54 U/L (46-116); Anion Gap 7 mmol/L (4-12); Aspartate Amino Transferase 22 U/L (15-37); Bilirubin,Total 0.5 mg/dL (0.00-1.00); Blood Urea Nitrogen 20 mg/dL (7-18); Calcium 8.9 mg/dL (8.5-10.1); Carbon Dioxide 28 mmol/L (21-32); Chloride 103 mmol/L (98-108); Cholesterol 177 mg/dL (0-200); Estimated Glomerular Filt Rate > 60; Glucose 99 mg/dL (70-99); HDL Direct 76 mg/dL (40-60); LDL Cholesterol Calculated 94 mg/dL (<130); Osmolality Calculated 288 mOsm/kg (285-295); Potassium 3.6 mmol/L (3.5-5.1); Sodium 138 mmol/L (136-145); Total Protein 6.8 g/dL (6.4-8.2); Triglycerides 37 mg/dL (0-150)
[2024-06-12 09:02] LABS: Hemoglobin A1C 5.4 % (<5.7)
[2024-06-12 09:14] LABS: Thyroid Stimulating Hormone Reflex 2.75 u/IU/mL (0.36-3.74)
== END 2024-06-12 08:21 | disposition home or self-care (01) ==
LOC: CHSLAB 08:22
PROVIDERS: PCP Internal Medicine; Visit Provider Internal Medicine
DX: I10 Essential (primary) hypertension (principal); N39.41 Urge incontinence; R73.01 Impaired fasting glucose; E78.2 Mixed hyperlipidemia; M81.0 Age-related osteoporosis without current pathological fracture; E04.2 Nontoxic multinodular goiter
CPT/HCPCS: 36415; 80053; 80061; 81003; 83036; 84443; 85027

== ENCOUNTER 2024-07-06 08:46 | Emergency (ER) | payer MEDICARE, SELFPAY ==
[2024-07-06] VITALS (40 sets, daily range): BP systolic 99–148; BP diastolic 42–121; PULSE 65–114; RESP 11–26; TEMP 35.8–36.6; O2SAT 93–100
--- NOTE | 2024-07-06 08:53 | ECG_ITS ---
Test Date: 2024-07-06 09:17:17 Measurements Intervals [place] Rate: 83 P: 0 [place]: 0 QRS: -17 QRSD: 98 T: 45 QT: 364 QTc: 430 Interpretive Statements ATRIAL FIBRILLATION SEPTAL MYOCARDIAL INFARCTION , PROBABLY OLD [40+ ms Q WAVE IN V1/V2] No previous ECG available for comparison Electronically Signed On 07-06-2024 11:58:10 CDT by Adalgisa Prince M.D.
--- NOTE | 2024-07-06 08:53 | ED.SYNCOPE ---
HPI - Syncope General Chief Complaint: Syncope Stated Complaint: dizzy Time Seen by Provider: 07/06/24 08:48 History of Present Illness HPI narrative: Pt presents after having syncopal episode this morning. Pt says she had been feeling a little lightheaded while up and about this morning and in fact has felt similar to this the last few days. Today she had been up and about doing her regular activities and felt a bit lightheaded but had resolved. Pt says she was later sitting down and felt lightheaded and put head down on table and then passed out and fell to the floor. Pt says her heard her fall. Pt woke up on the floor. Pt denies injury or ERICKSON. Pt denies CP or palpitations before or after event. Related Data Home Medications Medication Instructions Recorded Confirmed aspirin 81 mg chewable tablet 81 mg PO DAILY 01/26/24 07/06/24 atenolol 100 mg tablet 50 mg PO DAILY 01/26/24 07/06/24 diltiazem HCl 180 mg 180 mg PO DAILY 01/26/24 07/06/24 capsule,extended release 24 hr (Cardizem CD) losartan 25 mg tablet (Cozaar) 25 mg PO DAILY 01/26/24 07/06/24 omeprazole 20 mg tablet,delayed 20 mg PO DAILY 01/26/24 07/06/24 release potassium chloride 10 mEq 10 meq PO DAILY 01/26/24 07/06/24 tablet,extended release pravastatin 20 mg tablet 20 mg PO HS 01/26/24 07/06/24 spironolactone 50 mg tablet 50 mg PO DAILY 01/26/24 07/06/24 (Aldactone) Allergies Allergy/AdvReac Type Severity Reaction Status Date / Time No Known Allergies Allergy Verified 07/06/24 08:52 Review of Systems Review of Systems: All systems reviewed & are unremarkable except as noted in HPI and below PMFSH Social History Social History Smoking packs per day: 0.5 Smoking cigarettes per day: 10.0 Smoking status: Former smoker Tobacco type: cigarettes Exam Const: General: healthy appearing and no acute distress Nutritional Appearance: well nourished Orientation/consciousness: patient oriented x3 Limitations: no limitations HENMT: Head: normal to inspection Face and sinus: normal facial exam Eyes: Conjunctivae: conjunctivae normal EOM: EOMs intact bilaterally Neck: Neck: normal visual inspection, no lymphadenopathy and no meningeal signs Chest: Chest palpation & inspection: normal inspection of the chest Resp: Effort & Inspection: normal respiratory effort Auscultation: clear to auscultation bilaterally Cardio: Rate: regular rate Rhythm: abnormal rhythm GI: GI Palp: Yes Soft to palpation and No Tenderness to palpation present (GI) Auscultation: normal bowel sounds Back/Spine/Pelvis: Back: no CVA tenderness Skin: General skin exam: normal color Rashes: no rashes Wounds: no wounds Neuro: General: patient oriented x3, moves all extremities, no meningeal signs, no focal motor deficits and CN's II-XI intact bilaterally Cranial nerves: Yes Nystagmus not present Speech: normal speech Extrem: General: normal to inspection and no clubbing, cyanosis or edema Psych: Mental Status: mental status grossly normal Affect: normal affect Attitude: cooperative Course Vital Signs Vital signs: Vital Signs Temperature 96.5 F L 07/06/24 08:46 Pulse Rate 100 07/06/24 08:46 Respiratory Rate 18 07/06/24 08:46 Blood Pressure 148/97 H 07/06/24 08:46 Pulse Oximetry 97 07/06/24 08:46 Oxygen Delivery Room Air 07/06/24 08:46 Temperature 105.6 F H 07/06/24 08:46 Pulse Rate 114 H 07/06/24 09:04 Respiratory Rate 18 07/06/24 08:46 Blood Pressure 114/73 07/06/24 09:04 Pulse Oximetry 97 07/06/24 08:46 Oxygen Delivery Room Air 07/06/24 08:46 MDM - Syncope MDM Narrative Medical decision making narrative: Pt has had several near syncopal episodes over last few days and had some body aches and chills a few days ago. Today pt was seated and had a syncopal episode and fell to ground. Pt denies injury from fall. Concern for arrhythmia since seated with head on table when she had event. C
[2024-07-06 09:05] LABS: Glucose Point of Care 118 mg/dl (65-105)
[2024-07-06 09:14] LABS: Basophils Absolute Auto 0.05 K/mm3 (0.00-0.10); Basophils Percent Auto 0.6 % (0.0-1.0); Eosinophils Absolute Auto 0.19 K/mm3 (0.02-0.50); Eosinophils Percent Auto 2.2 % (1.0-6.0); Hematocrit 45.5 % (35.0-42.0); Hemoglobin 15.3 g/dL (11.7-13.8); Immature Granulocyte Absolute 0.02 K/mm3 (0.00-0.00); Immature Granulocyte Percent A 0.2 % (0.0-0.0); Lymphocytes Absolute Auto 1.77 K/mm3 (1.10-4.50); Lymphocytes Percent Auto 20.8 % (18.0-42.0); Mean Corpuscular HGB Conc 33.6 g/dL (32-36); Mean Corpuscular Hemoglobin 31.2 pg (27.0-31.0); Mean Corpuscular Volume 92.7 fL (78.0-102.0); Mean Platelet Volume 9.4 fl (9.2-11.8); Monocytes Absolute Auto 0.94 K/mm3 (0.10-0.90); Neutrophils Absolute Auto 5.56 K/mm3 (1.70-7.20); Neutrophils Percent Auto 65.2 % (50.0-70.0); Platelet Count Result 288 K/mm3 (150-420); Red Blood Count 4.91 M/mm3 (4.20-5.40); Red Cell Distribution Width 12.8 % (11.6-14.4); White Blood Count 8.5 K/mm3 (4.8-10.8)
[2024-07-06] MEDS: SODIUM CHLORIDE 0.9% IV 1,000 ML 999 ML IV CONT (09:19)
[2024-07-06 09:28] LABS: Partial Thromboplastin Time 25.9 Sec (23.9-30.70); Prothrombin Time 10.7 Seconds (9.50-12.1)
[2024-07-06 09:35] LABS: Alanine Aminotransferase 43 U/L (14-59); Albumin Level 3.8 g/dL (3.4-5.0); Alkaline Phosphatase 58 U/L (46-116); Anion Gap 9 mmol/L (4-12); Aspartate Amino Transferase 28 U/L (15-37); Bilirubin,Total 0.7 mg/dL (0.00-1.00); Blood Urea Nitrogen 16 mg/dL (7-18); Calcium 9.1 mg/dL (8.5-10.1); Chloride 102 mmol/L (98-108); Estimated Glomerular Filt Rate 58; Glucose 122 mg/dL (70-99); Magnesium 1.7 mg/dL (1.8-2.4); NT Pro B Type Natriuretic Pept 1497 pg/mL (0-450); Osmolality Calculated 288 mOsm/kg (285-295); Potassium 4.1 mmol/L (3.5-5.1); Sodium 138 mmol/L (136-145); Total Protein 7.1 g/dL (6.4-8.2)
[2024-07-06 09:49] LABS: SARS-CoV-2 RNA PCR Negative (Negative)
[2024-07-06 09:54] LABS: Influenza A QL RT-PCR Negative (Negative); Influenza B QL RT-PCR Negative (Negative); RSV RNA, RT-PCR Negative (Negative)
[2024-07-06 10:38] LABS: Carbon Dioxide 27 mmol/L (21-32)
[2024-07-06] MEDS: ENOXAPARIN 100 MG/ML SYRINGE SUB-Q (11:08)
== END 2024-07-06 12:55 | disposition short-term general hospital (02) ==
PROVIDERS: Emergency Provider Emergency Medicine; PCP Internal Medicine
DX: I48.91 Unspecified atrial fibrillation (principal); R55 Syncope and collapse; Z79.82 Long term (current) use of aspirin; Z20.822 Contact with and (suspected) exposure to COVID-19; Z79.899 Other long term (current) drug therapy; Z87.891 Personal history of nicotine dependence
CPT/HCPCS: 36415; 80053; 82948; 83735; 83880; 84484; 85025; 85610; 85730; 87637; 93005; 96360; 96372; 99285; J1650; J7030

== ENCOUNTER 2024-08-30 11:32 | Outpatient (CLI) | payer MEDICARE, SELFPAY ==
--- NOTE | ~2024-08-30 | CT_ITS ---
EXAMINATION: CT abdomen pelvis wo/w con DATE: 08/30/2024 12:47 INDICATION: Hematuria. TECHNIQUE: Computed tomography (CT) of the abdomen and pelvis was performed without and with intraven ous contrast using a total of 130 mL Omnipaque-350 intravenous contrast with a double-bolus technique for simultaneous opacification of the renal parenchyma and renal collecting system. Automated exposu re control and iterative reconstruction technique were employed. The dose-length product was 2021.78 mGy-cm. COMPARISON: None FINDINGS: The visualized portions of the lung bases demonstrate mild atelectasis. No pleural effusion. There is left atrial enlargement of the heart. There are coronary artery calcifications. No pericardial effus ion. There are cysts in the liver measuring up to 7 mm. The gallbladder, spleen, pancreas, adrenal gl ands, and kidneys are normal. There is no urolithiasis. The ureters are well opacified and are normal . There is diverticulosis of the colon without evidence of diverticulitis. There are no dilated loops of bowel. The appendix is normal. There are no pathologically enlarged lymph nodes. There is no free intraperitoneal fluid. There are chronic bilateral L5 pars defects. There is moderate lumbar spondyl osis and mild thoracic spondylosis. IMPRESSION: 1. No etiology for hematuria. Reviewed, dictated and finalized at location A.
[2024-08-30 12:13] LABS: Estimated Glomerular Filt Rate 54
== END 2024-08-30 11:33 | disposition home or self-care (01) ==
LOC: CHSIMG 11:36
PROVIDERS: PCP Internal Medicine; Visit Provider Internal Medicine
DX: R31.9 Hematuria, unspecified (principal)
CPT/HCPCS: 74178; Q9967

== ENCOUNTER 2024-09-06 07:59 | Outpatient (CLI) | payer MEDICARE, SELFPAY ==
[2024-09-06 08:14] LABS: Basophils Absolute Auto 0.04 K/mm3 (0.00-0.10); Basophils Percent Auto 0.8 % (0.0-1.0); Eosinophils Absolute Auto 0.14 K/mm3 (0.02-0.50); Eosinophils Percent Auto 2.7 % (1.0-6.0); Hematocrit 40.7 % (35.0-42.0); Hemoglobin 13.5 g/dL (11.7-13.8); Immature Granulocyte Absolute 0.02 K/mm3 (0.00-0.00); Immature Granulocyte Percent A 0.4 % (0.0-0.0); Lymphocytes Absolute Auto 1.56 K/mm3 (1.10-4.50); Lymphocytes Percent Auto 29.7 % (18.0-42.0); Mean Corpuscular HGB Conc 33.2 g/dL (32-36); Mean Corpuscular Volume 93.6 fL (78.0-102.0); Mean Platelet Volume 9.5 fl (9.2-11.8); Monocytes Absolute Auto 0.67 K/mm3 (0.10-0.90); Monocytes Percent Auto 12.7 % (2.0-11.0); Neutrophils Absolute Auto 2.83 K/mm3 (1.70-7.20); Neutrophils Percent Auto 53.7 % (50.0-70.0); Platelet Count Result 229 K/mm3 (150-420); Red Blood Count 4.35 M/mm3 (4.20-5.40); White Blood Count 5.3 K/mm3 (4.8-10.8)
[2024-09-06 08:53] LABS: Alanine Aminotransferase 28 U/L (14-59); Albumin Level 3.5 g/dL (3.4-5.0); Alkaline Phosphatase 58 U/L (46-116); Anion Gap 7 mmol/L (4-12); Aspartate Amino Transferase 17 U/L (15-37); Bilirubin,Total 0.6 mg/dL (0.00-1.00); Blood Urea Nitrogen 17 mg/dL (7-18); Carbon Dioxide 31 mmol/L (21-32); Chloride 104 mmol/L (98-108); Estimated Glomerular Filt Rate > 60; Glucose 98 mg/dL (70-99); Magnesium 2.1 mg/dL (1.8-2.4); Osmolality Calculated 295 mOsm/kg (285-295); Sodium 142 mmol/L (136-145); Total Protein 6.3 g/dL (6.4-8.2)
== END 2024-09-06 08:00 | disposition home or self-care (01) ==
PROVIDERS: PCP Internal Medicine; Visit Provider Internal Medicine
DX: I10 Essential (primary) hypertension (principal); I48.91 Unspecified atrial fibrillation
CPT/HCPCS: 36415; 80053; 83735; 85025

== ENCOUNTER 2024-12-16 07:37 | Outpatient (CLI) | payer MEDICARE, SELFPAY ==
--- NOTE | ~2024-12-16 | MM_ITS ---
EXAMINATION: MM screening dayo BI w cortes HISTORY: Screening TECHNIQUE: Craniocaudal and mediolateral oblique 3-D tomosynthesis images were obtained and synthetic 2-D images were generated. CAD analysis was submitted and interpreted. COMPARISON: Comparison to multiple prior studies sequentially, with oldest reviewed study dated 10/24. BREAST PARENCHYMAL COMPOSITION: Not Dense: The breasts are almost entirely fatty. FINDINGS: Stable right subareolar asymmetry. There is no evidence of suspicious mass, calcification, or architectural distortion to suggest malignancy in either breast. There has been no suspicious inte rval change. IMPRESSION: 1. No mammographic evidence of malignancy. 2. Recommend routine screening mammography in one year. BI-RADS Category 1: Negative Reviewed, dictated and finalized at location A. 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
[2024-12-16 07:50] LABS: Hemoglobin 13.5 g/dL (11.7-13.8); Mean Corpuscular HGB Conc 32.1 g/dL (32-36); Mean Corpuscular Hemoglobin 29.8 pg (27.0-31.0); Mean Corpuscular Volume 92.7 fL (78.0-102.0); Mean Platelet Volume 9.3 fl (9.2-11.8); Platelet Count Result 275 K/mm3 (150-420); Red Blood Count 4.53 M/mm3 (4.20-5.40); Red Cell Distribution Width 13.2 % (11.6-14.4); White Blood Count 6.8 K/mm3 (4.8-10.8)
[2024-12-16 08:21] LABS: Add Urine Microscopic? NO; Appearance Urine Clear (Clear); Bilirubin Urine Negative (Negative); Blood Urine Trace-intact (Negative); Color Urine Light Yellow (Yellow); Glucose Urine UA Negative (Negative); Ketones Urine Negative (Negative); Leukocyte Esterase Ur Negative (Negative); Nitrate Urine Negative (Negative); Protein Urine Negative (Negative); Urobilinogen Urine 0.2 mg/dL (0.2-1.0); pH Urine 5.5 (5.0-8.0)
[2024-12-16 08:26] LABS: Hemoglobin A1C 5.3 % (<5.7)
[2024-12-16 08:33] LABS: Alanine Aminotransferase 43 U/L (14-59); Albumin Level 3.7 g/dL (3.4-5.0); Alkaline Phosphatase 68 U/L (46-116); Anion Gap 9 mmol/L (4-12); Aspartate Amino Transferase 22 U/L (15-37); Bilirubin,Total 0.5 mg/dL (0.00-1.00); Blood Urea Nitrogen 28 mg/dL (7-18); Calcium 8.9 mg/dL (8.5-10.1); Carbon Dioxide 28 mmol/L (21-32); Chloride 106 mmol/L (98-108); Cholesterol 174 mg/dL (0-200); Creatine Kinase 51 U/L (26-192); Estimated Glomerular Filt Rate > 60; Glucose 95 mg/dL (70-99); HDL Direct 67 mg/dL (40-60); LDL Cholesterol Calculated 100 mg/dL (<130); Osmolality Calculated 301 mOsm/kg (285-295); Potassium 4.2 mmol/L (3.5-5.1); Sodium 143 mmol/L (136-145); Total Protein 6.4 g/dL (6.4-8.2); Triglycerides 35 mg/dL (0-150)
== END 2024-12-16 07:38 | disposition home or self-care (01) ==
PROVIDERS: PCP Internal Medicine; Visit Provider Internal Medicine
DX: Z12.31 Encounter for screening mammogram for malignant neoplasm of breast (principal); R30.0 Dysuria; E78.2 Mixed hyperlipidemia; I10 Essential (primary) hypertension; M81.0 Age-related osteoporosis without current pathological fracture; R73.01 Impaired fasting glucose; M15.0 Primary generalized (osteo)arthritis
CPT/HCPCS: 36415; 77063; 77067; 80053; 80061; 81003; 82550; 83036; 85027; 87086

== ENCOUNTER 2025-03-11 08:27 | Outpatient (CLI) | payer MEDICARE, SELFPAY ==
--- NOTE | ~2025-03-11 | DEXA_ITS ---
Bone Density Report Name: DEBBIE DANIELLE Age: 79 Sex: Female Ethnicity: White Date of : 1945 Indication: postmenopausal; screening for osteoporosis; parental hip fracture; height loss; Referring Provider: Dixon Rice Study: Bone densitometry was performed. Exam Date: March 11, 2025 Accession number: [id number] Bone Density: Region BMD T-score Z-score Classification AP Spine(L2, L3, L4) 1.104 0.2 2.9 Normal Femoral Neck (Left) 0.611 -2.1 0.1 Osteopenia Total Hip (Left) 0.799 -1.2 0.8 Osteopenia Femoral Neck (Right) 0.653 -1.8 0.4 Osteopenia Total Hip (Right) 0.801 -1.2 0.8 Osteopenia Femoral Neck Mean 0.632 -2.0 0.3 Osteopenia Total Hip Mean 0.800 -1.2 0.8 Osteopenia World Health Organization criteria for BMD impression classify patients as: Normal (T-score at or above -1.0), Osteopenia (T-score between -1.0 and -2.5), or Osteoporosis (T-score at or below -2.5). 10-year Fracture Risk: FRAX not reported because: Treated for osteoporosis Clinical Information Provided by Patient: Parent has had a hip fracture Is being treated for osteoporosis Has used the following medications: Prolia (i.e. denosumab), Vitamin D, multi Patient maximum height was 69 Menopause Age: 52 No regular weight bearing exercise Does not regularly consume dairy products Drinks caffeinated beverages Onset of menses at age 14 Number of children 3 Impression: The patient has low bone mass, based on the Left Femoral Neck T-score. The patient has risk factors, including: parental hip fracture. Discussion: It is important to ask patients whether they are taking their medications and to encourage continued and appropriate compliance with their osteoporosis therapies to reduce fracture risk. It is also important to review their risk factors and encourage appropriate calcium and vitamin D intakes, exercise, fall prevention and other lifestyle measures. Follow-Up: Consider a repeat BMD and Vertebral Fracture Assessment (VFA) exam in 2 years or sooner if medically necessary, to reassess this patient's status. Reported by: ROSS on 03/11/2025 8:49:00 AM. Reviewed, dictated and finalized at location A.
--- OUTSIDE RECORDS SUMMARY | 2025-03-11 08:31 | XMS_ITS | Encounter Summary ---
Author Organization [facility] Address 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
--- OUTSIDE RECORDS SUMMARY | 2025-03-11 08:31 | XMS_ITS | Clinical Summary ---
Author Organization [facility] Address [address] [place] [address] Phone Care Team Providers Care Classroom Teacher Name Role Phone Dixon Rice MD Primary Care Provider [phone] Amilcar García MD Unavailable Allergies No known active allergies Medications pravastatin (PRAVACHOL) 20 MG Tablet Take 20 mg by mouth every evening. Active aspirin 81 MG Chewable Tablet Take 81 mg by mouth every evening. Active atenolol (TENORMIN) 50 MG Tablet Take 50 mg by mouth daily. Active losartan (COZAAR) 25 MG Tablet Take 25 mg by mouth every evening. Active dilTIAZem (Cardizem CD) 180 MG CAPSULE SR 24 HR Take 180 mg by mouth daily. Active Magnesium Oxide 400 MG Capsule Take 200 mg by mouth daily. Active potassium chloride SA (KLORCON M) 20 MEQ Tablet Controlled Release Take 20 mEq by mouth daily. Active omeprazole (PriLOSEC) 20 MG CAPSULE DELAYED RELEASE Take 20 mg by mouth daily. Active ascorbic acid (Vitamin C) 250 MG Tablet Take 500 mg by mouth daily. Active multi-vitamins (Multi-Vitamin) Tablet Take 1 Tablet by mouth daily. Active MegaRed [place]-3 Krill Oil 500 MG Capsule Take 1 Capsule by mouth daily. Active Cholecalciferol (Vitamin D) 2000 UNIT Tablet Take 1,000 Units by mouth daily. Active cetirizine (ZyrTEC Allergy) 10 MG Tablet Take 10 mg by mouth every evening. Active spironolactone (ALDACTONE) 25 MG Tablet Take 1 Tablet by mouth daily. 90 Tablet 1 4 Active ondansetron (ZOFRAN-ODT) 4 MG TABLET DISPERSIBLE Take 1 Tablet by mouth every 6 hours as needed for Nausea - 1st line. 10 Tablet 4 Active polyethylene glycol (GLYCOLAX, MIRALAX) 17 g PackIndications: Constipation Take 1 Packet by mouth 2 times daily as needed for Constipation - 1st line. Dissolve in 4-8 oz of liquid. Indications: Constipation 30 Packet 4 Active Additional Information Patient not taking.Reported on 09/10/2024 senna (SENOKOT) 8.6 MG Tablet Take 1 Tablet by mouth 2 times daily as needed for Constipation - 2nd line. 30 Tablet 4 Active Additional Information Patient not taking.Reported on 09/10/2024 rivaroxaban (XARELTO) 20 MG TabletIndication s:Atrial Fibrillation Take 1 Tablet by mouth daily (with dinner). Take with food. Indications: Atrial Fibrillation 90 Tablet 4 Active Active Problems Problem Noted Date Diagnosed Date Atrial fibrillation 07/06/2024 Syncope 07/06/2024 Hypomagnesemia 07/06/2024 Hypertension 07/06/2024 Hyperlipidemia 07/06/2024 Encounters Date Type Department Care Team Description 01/24/2025 Telephone [facility] - Cardiology [facility] [address] [place] [address] Polo Reid MD from Last 3 Months Social History Tobacco Use Types Packs/Day Years Used Date Smoking Tobacco: Never Smokeless Tobacco: Never Tobacco Cessation:Counseling Given: Not Answered Alcohol Use Standard Drinks/Week Comments Not Currently 0 (1 standard drink = 0.6 oz pur e alcohol) [facility] Utilities Answer Date Recorded In the past 12 months has [employer], gas, oil, or water company threatened to shut off services in your home? Patient declined 07/06/2024 Social Connection and Isolation Panel [NHANES] A nswer Date Recorded In a typical week, how many times do you talk on the phone with family, friends, or neighbors? Patient declined 07/06/2024 How often do you get togethe r with friends or relatives? Patient declined 07/06/2024 How often do you attend yazidism or methodist serv ices? Patient declined 07/06/2024 Do you belong to any clubs o r organizations such as yazidism groups, unions, fraternal or athletic groups, or school groups? Patient declined 07/06/2024 How often do you attend meet ings of the clubs or organizations you belong to? Patient declined 07/06/2024 Are you , , di vorced, , never , or living with a partner? Patient declined 07/06/2024 AUDIT-C Answer Date Recorded Q1: How often do you have a drink containing alc ohol? Patient declined 07/06/2024 Q2: How many drinks containi ng alcohol do you have on a typical day when you are drinking? Patient declined 07/06/2024 Q3: How often do you have si x or more drinks on one occasion? Patient declined 07/06/2024 Overall Financial Resource Strain (CARDIA) Answe r Date Recorded How hard is it for you to pa y for the very basics like food, housing, medical care, and heating? Patient declined 07/06/2024 [facility] - Occupational Stress Questionnaire Answer Date Recorded Do you feel stress - tense, restless, nervous, or anxious, or unable to sleep at night because your mind is troubled all the time - these days? Patient declined 07/06/2024 Exercise Vital Sign Answer Date Recorde d On average, how many days pe r week do you engage in moderate to strenuous exercise (like a brisk walk)? Patient declined On average, how many minutes do you engage in exercise at this level? Patient declined 07/06/2024 Hunger Vital Sign Answer Date Recorded Within the past 12 months, y ou worried that your food would run out before you got the money to buy more. Patient declined Within the past 12 months, t he food you bought just didn't last and you didn't have money to get more. Patient declined PRAPARE - Transportation Answer Date Re corded In the past 12 months, has l ack of transportation kept you from medical appointments or from getting medications? Patient declined 07/06/2024 In the past 12 months, has l ack of transportation kept you from meetings, work, or from getting things needed for daily living? Patient declined 07/06/2024 Housing Stability Vital Sign Answer Kai e Recorded In the last 12 months, was t here a time when you were not able to pay the mortgage or rent on time? Patient declined 07/06/20 24 In the past 12 months, how m any times have you moved where you were living? 1 07/06/2024 At any time in the past 12 m [facility] were you homeless or living in a senior living (including now)? Patient declined 07/06/2024 Comments No Sex and Gender Information Value Date Recorded Sex Assigned at Female 09/08/2024 10:13 AM CDT Legal Sex Female 10:18 AM CDT Gender Identity Not on file Sexual Orientation Straight 09/08/2024 10 :13 AM CDT Last Filed Vital Signs Vital Sign Reading Time Taken Comments Blood Pressure 158/82 09/10/2024 2:52 PM CDT Pulse 50 09/10/2024 2:52 PM CDT Temperature 36.5 C (97.7 F) 09/10/2024 2:52 PM CDT Respiratory Rate 16 09/10/2024 2:52 PM CDT Oxygen Saturation 100% 09/10/2024 2:52 PM CDT Inhaled Oxygen Concentration - - Weight 106.1 kg (234 lb) 09/10/2024 2:52 PM CDT Height 175.3 cm (5' 9 ) 09/10/2024 2:52 PM CDT Body Mass Index 34.56 09/10/2024 2:52 PM CDT Plan of Treatment Health Maintenance Due Date Last Done Comments Hepatitis C Virus (HCV) Screening 1945 TdaP Immunization 1945 Pneumococcal Immunization (50+ years) (2 of 2 - PPSV23) 09/21/2016 09/21/2015 SARS-COV-2 Immunization ( season) 2024 08/28/2021, 01/19/2021, 12/29/2020 DEXA Bone Density 12/16/2024 12/16/2022 Zoster Immunization Completed 07/23/2019, 9 Influenza Immunization Completed , 08/06/2023, 08/27/2022, Additional history exists Respiratory Syncytial Virus (RSV) Immunization (Adult) Completed 09/01/2024 Hepatitis B Immunization Aged Out No longer eligible based on patient's age to complete this topic Meningococcal Immunization (ACWY) Aged Out No longer eligible based on patient's age to complete this topic Rotavirus Immunization Aged Out No lo nger eligible based on patient's age to complete this topic Insurance MEDICARE [facility] Advance Directives * Full Code (Latest Code Status on File) Date Activated Date Inactivated Comments 07/06/2024 2:34 PM CPR-Full Treat ment: FULL ARREST: Attempt Resuscitation/CPR wit intubation and mechanical ventilation. PRE-ARREST: Use entire range of life support measures to stabilize the patient. Care Teams Classroom Teacher Relationship Specialty Start Date End Date Dixon Rice MD [address] [place] [address] PCP - General Internal Medicine 07/06/24 Raquel, Amilcar Riley MD [address] [facility], [address] [address] Consulting Physician Clinical Cardiac Electrophysiology 09/06/24
--- OUTSIDE RECORDS SUMMARY | 2025-03-11 08:31 | XMS_ITS | Clinical Summary ---
Author Organization [facility] Address [address] [place] [address] Care Team Providers Care Marketing Research Coordinator Name Role Phone Dixon Milner MD Primary Care Provider [phone] Janette Dueñas MD Unavailable Allergies No known active allergies Medications Multiple Vitamin (MULTI-DAY VITAMINS) tablet Take 1 tablet by mouth daily. 10/21/2011 Active spironolactone 50 MG tablet Take 1 tablet (50 mg total) by mouth daily. 01/29/2006 Active cetirizine 10 MG tablet Take 1 tablet (10 mg total) by mouth daily. 10/21/2011 Active aspirin 81 MG tablet Take 1 tablet (81 mg total) by mouth. Active pravastatin 20 MG tablet Take 1 tablet (20 mg total) by mouth daily. 03/11/2018 Active traMADol 50 MG tablet As Needed 05/14/2018 Active losartan 25 MG tablet Take 1 tablet (25 mg total) by mouth daily. 04/28/2018 Active omeprazole 20 MG capsule Take 1 capsule (20 mg total) by mouth daily. Active dilTIAZem 24 hr 180 MG capsule Take 1 capsule (180 mg total) by mouth daily. 90 capsule 3 10/30/2018 Active potassium chloride CR (KLOR-CON M10) 10 MEQ tablet Take 1 tablet (10 mEq total) by mouth daily. 90 tablet 3 10/30/2018 Active atenolol 50 MG tablet Take 1 tablet (50 mg total) by mouth daily. 04/30/2019 Active MEGARED OMEGA-3 KRILL OIL OR Take 300 mg by mouth daily. Active vitamin C 500 MG tablet Take 1 tablet (500 mg total) by mouth daily. Active magnesium oxide 250 MG tablet Take 1 tablet (250 mg total) by mouth daily. Active PROLIA 60 MG/ML injection 01/07/2023 Active XARELTO 20 MG Tab tablet Take 1 tablet (20 mg total) by mouth every evening. Active Active Problems Problem Noted Date Diagnosed Date H/O supraventricular tachycardia 05/31/2018 GERD (gastroesophageal reflux disease) Hyperlipidemia Hypertension Mitral valve prolapse Encounters Date Type Department Care Team Description 02/03/2025 Telephone [facility] [address] [place] [address] Janette Dueñas MD Results; Returned Call 01/31/2025 7:34 AM CDT - 01/31/2025 11:59 PM CDT Hospital Encounter [facility] [address] [place] [address] [place] [address] Janette Dueñas MD Quarton, Brian L, MD Discharge Disposition: Home or Self Care (Routine Discharge) 01/31/2025 7:34 AM CDT - 01/31/2025 11:59 PM CDT Hospital Encounter [facility] [address] [place] [address] [place] [address] Janette Dueñas MD Discharge Disposition: Home or Self Care (Routine Discharge) 01/31/2025 Travel 01/14/2025 [facility] [address] [place] [address] Abstract, Doc Pccl 01/04/2025 Telephone [facility] [address] [place] [address] Janette Dueñas MD Schedule Test 01/03/2025 1:30 PM GINGER FARMER Office Visit [facility] [address] [place] [address] Janette Dueñas MD Atrial Fibrillation 01/03/2025 1:00 PM GINGER FARMER - 01/03/2025 11:59 PM GINGER FARMER Hospital Encounter [facility] [address] [place] [address] [place] [address] Janette Dueñas MD Discharge Disposition: Home or Self Care (Routine Discharge) 01/03/2025 Travel 12/31/2024 Orders Only [facility] [address] [place] [address] Janette Dueñas MD from Last 3 Months Family History Relation Status Comments Father Mother Sister Alive Social History Tobacco Use Types Packs/Day Years Used Date Smoking Tobacco: Former Cigarettes Q uit: 06/01/1978 Smokeless Tobacco: Never Alcohol Use Standard Drinks/Week Comments Yes 1.7 (1 standard drink = 0.6 oz p ure alcohol) per week Comments Unknown Sex and Gender Information Value Date Recorded Sex Assigned at Female 01/31/2025 7:34 AM CDT Legal Sex Female 10:44 PM CDT Gender Identity Female 11/07/2021 12:17 PM GINGER FARMER Sexual Orientation Straight 11/07/2021 12 :17 PM GINGER FARMER Occupation Industry Job Start Date Job End Date Not on file Not on file Not on file Not on file Last Filed Vital Signs Vital Sign Reading Time Taken Comments Blood Pressure 122/58 01/03/2025 11:53 AM GINGER FARMER Pulse 58 01/03/2025 11:52 AM GINGER FARMER Temperature - - Respiratory Rate 16 01/03/2025 11:52 AM GINGER FARMER Oxygen Saturation 98% 01/03/2025 11:52 AM GINGER FARMER Inhaled Oxygen Concentration - - Weight 106.6 kg (235 lb) 01/03/2025 11:52 AM GINGER FARMER Height 172.7 cm (5' 8 ) 01/03/2025 11:52 AM GINGER FARMER Body Mass Index 35.73 01/03/2025 11:52 AM GINGER FARMER Plan of Treatment Upcoming Encounters Date Type Department Care Team (Late st Contact Info) Description 12/28/2025 1:00 PM [address]ER F[address] [facility] [address] [place] [address] Janette Dueñas MD [address] [place] [address] 01/16/2026 12:00 PM GINGER FARMER Office Visit [facility] [address] [place] [id number] Janette Dueñ[place] [address] Health Maintenance Due Date Last Done Comments Hepatitis C 1965 DTaP, Tdap and Td Vaccines ( 1 - Tdap) 1966 Zoster Vaccines (1 of 2) 1997 Annual Medicare Wellness Visit 2012 Pneumococcal Vaccine: 50+ Ye ars (2 of 2 - PPSV23) 11/16/2015 09/21/2015 RSV Immunization or 60+ Years (1 - 1-dose 75+ series) 2022 COVID-19 Vaccine (1 - 2023-2 5 season) 2024 PHQ-2 (Physician [place]ik) 11/24/2024 Dexa Scan (General) Completed 12/16/2022 Meningococcal B Vaccine Aged Out No l onger eligible based on patient's age to complete this topic Meningococcal Vaccine Aged Out No steven renetta eligible based on patient's age to complete this topic RSV Immunizations Under 20 Months Aged Out No longer eligible based on patient's age to complete this topic Procedures Procedure Name Priority Date/Time Associated Diagnosis Comments NM PHARM NUC STRESS TEST 1DAY W TRACING Routine 01/31/2025 10:15 AM CDT Paroxysmal atrial fibrillation ([facility]) STRESS TEST ONLY, EXERCISE Routine 01/31/2025 7:36 AM CDT Paroxysmal A-fib ECG 12-LEAD Routine 01/03/2025 1:09 PM GINGER FARMER Primary hypertension COMPREHENSIVE METABOLIC PANEL Routine 12/16/2024 LIPID PANEL Routine 12/16/2024 CBC, MANUAL DIFF Routine 12/16/2024 HEMOGLOBIN, GLYCOSYLATED Routine 12/16/2024 BONE DENSITY/DEXA Routine 12/16/2022 2:2 0 PM GINGER FARMER Osteoporosis, post-menopausal from Last 3 Months or Most Recently Relevant to Health Maintenance Results * NM PHARM NUC STRESS TEST 1 DAY W TRACING (01/31/2025 10:15 AM CDT) Anatomical Region Laterality Modality Cardiac Nuclear Medicine 01/31/2025 8:03 AM CDT Narrative 01/31/2025 7:25 PM CDT MYOCARDIAL PERFUSION SCAN Pat.Name: Alissa Danielle Pat.ID: [id number] .Date: 01/31/2025 Refer.MD: [facility] Exam Time: 8:03:00 AM Study Type:[place] OUTREACH Height: 68 in Weight: 235 lb BSA: 2.19 m2 Age: 5 1945,79Y Sex: F Sonogrphr: JAM Boyle Pat. Stat.:Outpatient Reason for Study:Paroxysmal atrial fibrillation Procedures: Study performed at [place], [place] and interpreted by [facility]. Regadenoson Stress, Stress Gated SPECT, Rest SPECT Risk Factors:Atrial Fibrillation, Hypertension ++++++++++++++++++++++++++++++++++++ SUMMARY: ++++++++++++++++++++++++++++++++++++ Abnormal Perfusion Study. No evidence of ischemia. There is evidence of a small area of moderate intensity fixed defect consistent with infarction in the apical inferior wall. There is evidence of a small area of moderate intensity fixed defect consistent with infarction in the basal septal wall. There is post stress normal wall motion in all quiñones. Left ventricular EF is 58 %. The study quality is good. ++++++++++++++++++++++++++++++++++++ FINDINGS: ++++++++++++++++++++++++++++++++++++ Stress Findings: Negative electrocardiographic portion of regadenoson stress test. Impr: Abnormal Perfusion Study. There is evidence of a small area of moderate intensity fixed defect consistent with infarction in the apical inferior wall. There is evidence of a small area of moderate intensity fixed defect consistent with infarction in the basal septal wall. Transient Ischemic Dilatation: The TID is 1.12. LV Perfusion Results: There is a moderate basal anteroseptal, basal inferoseptal perfusion defect during stress and rest.There is a moderate apical inferior perfusion defect during stress which worsens with rest.There is a normal mid inferoseptal, mid inferior perfusion during stress which worsens with rest. Gated SPECT Results: Left ventricular EF is 58 %. There is post stress normal wall motion in all quiñones. Study Quality/Artifacts: The study quality is good. ++++++++++++++++++++++++++++++++++++ STRESS: ++++++++++++++++++++++++++++++++++++ Baseline Vital Signs: HR: 53 bmp Rest BP: 130/70 Regadenoson Peak Dose: 0.4 mg Stress Test Results: Max HR: 80 bmp Target HR: 143 bmp % Target: 56 % Max BP: 170/90 Max RPP: 95138 Symptoms and Complications: Reason for Stopping Test: Protocol completed <Electronic Signature> 01/31/2025 07:25 PM Janette Dueñas M.D. Procedure Note Janette Dueñas MD - 01/31/2025 MYOCARDIAL PERFUSION SCAN Pat.Name: Alissa Danielle Pat.ID: [id number] .Date: 01/31/2025 [facility]: [facility]00 AM Study Type:[facility] Height: 68 in Weight: 235 lb BSA: 2.19 m2 Age: 5 1945,79Y Sex: F Sonogrphr: JAM Boyle Pat. Stat.:Outpatient Reason for Study:Paroxysmal atrial fibrillation Procedures: Study performed at [place], [place] and interpreted by [facility]. Regadenoson Stress, Stress Gated SPECT, Rest SPECT Risk Factors:Atrial Fibrillation, Hypertension ++++++++++++++++++++++++++++++++++++ SUMMARY: ++++++++++++++++++++++++++++++++++++ Abnormal Perfusion Study. No evidence of ischemia. There is evidence of a small area of moderate intensity fixed defect consistent with infarction in the apical inferior wall. There is evidence of a small area of moderate intensity fixed defect consistent with infarction in the basal septal wall. There is post stress normal wall motion in all quiñones. Left ventricular EF is 58 %. The study quality is good. ++++++++++++++++++++++++++++++++++++ FINDINGS: ++++++++++++++++++++++++++++++++++++ Stress Findings: Negative electrocardiographic portion of regadenoson stress test. Impr: Abnormal Perfusion Study. There is evidence of a small area of moderate intensity fixed defect consistent with infarction in the apical inferior wall. There is evidence of a small area of moderate intensity fixed defect consistent with infarction in the basal septal wall. Transient Ischemic Dilatation: The TID is 1.12. LV Perfusion Results: There is a moderate basal anteroseptal, basal inferoseptal perfusion defect during stress and rest.There is a moderate apical inferior perfusion defect during stress which worsens with rest.There is a normal mid inferoseptal, mid inferior perfusion during stress which worsens with rest. Gated SPECT Results: Left ventricular EF is 58 %. There is post stress normal wall motion in all quiñones. Study Quality/Artifacts: The study quality is good. ++++++++++++++++++++++++++++++++++++ STRESS: ++++++++++++++++++++++++++++++++++++ Baseline Vital Signs: HR: 53 bmp Rest BP: 130/70 Regadenoson Peak Dose: 0.4 mg Stress Test Results: Max HR: 80 bmp Target HR: 143 bmp % Target: 56 % Max BP: 170/90 Max RPP: 62729 Symptoms and Complications: Reason for Stopping Test: Protocol completed <Electronic Signature> 01/31/2025 07:25 PM Janette Dueñas M.D. us Janette Dueñas MD NUC MED Final Result * ECG 12 lead (HOSPITAL PERFORMED ONLY) (01/03/2025 1:09 PM GINGER FARMER) 01/03/2025 1:09 PM GINGER FARMER Narrative [facility] - 01/03/2025 6:16 PM GINGER FARMER [address] [place] [address] Test Date: 2025-01-03 Pat Name: ALISSA DANIELLE Department: 3 Room: Gender: Female [employer] Pinner: : 1945 Requested By: JANETTE DUEÑAS Order Number: [id number] Reading MD: Janette Dueñas Measurements Intervals [place] Rate: 58 P: 64 OK: 195 QRS: 19 QRSD: 112 T: 58 QT: 441 QTc: 435 Interpretive Statements SINUS BRADYCARDIA MODERATE INTRAVENTRICULAR CONDUCTION DELAY ER FARMER Procedure Note Janette Dueñas MD - 01/03/[address] [place] [address] Test Date: 2025-01-03 Pat Name: ALISSA DANIELLE Department: 3 Room: Gender: Female [employer] P[employer]: : 1945 Requested By: JANETTE DUEÑAS Order Number: [id number] Reading ZENON Dueñas Measurements Intervals [place] Rate: 58 P: 64 OK: 195 QRS: 19 QRSD: 112 T: 58 QT: 441 QTc: 435 Interpretive Statements SINUS BRADYCARDIA MODERATE INTRAVENTRICULAR CONDUCTION DELAY ER FARMER us Janette Dueñas MD ECG ORDERABLES Final Result [facility] * HEMOGLOBIN, GLYCOSYLATED (12/16/2024) HGB A1C 5.3 % Narrative Resulting Agency Comment [facility] us Default History Genericprovider LABORATORY Final Result * COMPREHENSIVE METABOLIC PANEL (12/16/2024) SODIUM S/P/B 143 GLUCOSE 95 mg/dL AST 22 BUN 28 CREATININE S/P/B 0.90 0.5 - 1.0 CALCIUM S/P/B 8.9 POTASSIUM S/P/B 4.2 CHLORIDE S/P/B 106 ALT 43 GFR ESTIMATE >60 Narrative Resulting Agency Comment [facility] us Default History Genericprovider LABORATORY Final Result * LIPID PANEL (12/16/2024) CHOLESTEROL 174 TRIGLYCERIDES 35 HDL 67 LDL (CALCULATED) 100 Narrative Resulting Agency Comment [facility] us Default History Genericprovider LABORATORY Final Result * CBC, MANUAL DIFF (12/16/2024) WBC 6.8 HGB 13.5 HCT 42.0 PLT 275 Narrative Resulting Agency Comment [facility] us Default History Genericprovider LABORATORY Final Result * BONE DENSITY/DEXA (12/16/2022 2:20 PM GINGER FARMER) Anatomical Region Laterality Modality Bone Bone Density 12/16/2022 11:3 0 PM GINGER FARMER Impressions 12/16/2022 11:33 PM GINGER FARMER IMPRESSION: WHO Classification: Osteopenia RECOMMENDATIONS: All patients should ensure an adequate intake of dietary calcium and vitamin D. The NOF recommend adults under the age of 50 need 1000 mg of calcium and 400-800 IU of vitamin D daily. Effective therapy for the prevention and treatment of osteoporosis include bisphosphonates. Follow-up: People with diagnosed cases of osteoporosis or at high risk for fracture should have regular bone mineral density test. For patients eligible for Medicare, routine testing is allowed once every 2 years. Testing frequency can be increased to one year for patients who have rapidly progressing disease, those who are receiving or discontinuing medical therapy to restore bone mass, or have additional risk factors. Referred By: DIXON MILNER Interpreted By: Maxime Smith MD, 12/16/2022 11:30 PM Narrative 12/16/2022 11:33 PM GINGER FARMER EXAMINATION: BONE DENSITY/DEXA INDICATIONS: M 81.0; postmenopausal COMPARISON: None TECHNIQUE: DEXA bone minimal density evaluation was performed in the AP projection over the lumbar spine and over both hips in the AP projection utilizing standard imaging techniques. ASSESSMENT: The BMD measured at the AP spine L1-L4 is 1.081 g/cm? with a T-score of 0.3. The BMD measured at the left femoral neck is 0.679 g/cm? with a T-score of -1.5. The BMD measured at the left hip is 0.701 g/cm? with a T-score of -2.0. The BMD measured at the right femoral neck is 0.673 g/cm? with a T-score of - 1.6. The BMD measured at the right hip is 0.734 g/cm? with a T-score of -1.7. FRAX 10-year fracture risk: Major Osteoporotic Fracture: 18% Hip Fracture: 9% Procedure Note Maxime Smith MD - 12/16/2022 EXAMINATION: BONE DENSITY/DEXA INDICATIONS: M 81.0; postmenopausal COMPARISON: None TECHNIQUE: DEXA bone minimal density evaluation was performed in the APprojection over the lumbar spine and over both hips in the AP projectionutilizing standard imaging techniques. ASSESSMENT: The BMD measured at the AP spine L1-L4 is 1.081 g/cm? with a T-score of0.3. The BMD measured at the left femoral neck is 0.679 g/cm? with a T-score of-1.5. The BMD measured at the left hip is 0.701 g/cm? with a T-score of -2.0. The BMD measured at the right femoral neck is 0.673 g/cm? with a T-scoreof -1.6. The BMD measured at the right hip is 0.734 g/cm? with a T-score of -1.7. FRAX 10-year fracture risk: Major Osteoporotic Fracture: 18% Hip Fracture: 9% IMPRESSION: WHO Classification: Osteopenia RECOMMENDATIONS: All patients should ensure an adequate intake of dietary calcium andvitamin D. The NOF recommend adults under the age of 50 need 1000 mg ofcalcium and 400-800 IU of vitamin D daily. Effective therapy for theprevention and treatment of osteoporosis include bisphosphonates. Follow-up: People with diagnosed cases of osteoporosis or at high risk for fractureshould have regular bone mineral density test. For patients eligible forMedicare, routine testing is allowed once every 2 years. Testing frequencycan be increased to one year for patients who have rapidly progressingdisease, those who are receiving or discontinuing medical therapy torestore bone mass, or have additional risk factors. Referred By: DIXON MILNER Interpreted By: Maxime Smith MD, 12/16/2022 11:30 PM Dixon Milner MD DEXA Final Result from Last 3 Months or Most Recently Relevant [place] [address] MEDICARE [facility] [place], [place] [id number] [place] [phone] Care Teams Marketing Research Coordinator Relationship Specialty Start Date End Date Dixon Milner MD [address] [place] [address] PCP - General INTERNAL MEDICINE 05/28/18 Janette Dueñas MD [address] [place] [address] Consulting Physician CARDIOVASCULAR DISEASE 05/30/24
--- OUTSIDE RECORDS SUMMARY | 2025-03-11 08:31 | XMS_ITS | Encounter Summary ---
Author Organization [facility] Address [address] [place] [address] Care Team Providers Care Qc Lab Technician Name Role Phone Unavailable Primary Care Provider Unavailabl e Encounter Details Date Type Department Care Team (Late st Contact Info) Description 01/13/[address] 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
--- OUTSIDE RECORDS SUMMARY | 2025-03-11 08:31 | XMS_ITS | Encounter Summary ---
Author Organization [facility] Address [address] [place] [address] Care Team Providers Care Plugman Name Role Phone Unavailable Primary Care Provider Unavailabl e Encounter Details Date Type Department Care Team (Late st Contact Info) Description 01/08/[address] 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
--- OUTSIDE RECORDS SUMMARY | 2025-03-11 08:31 | XMS_ITS | Clinical Summary ---
Author Organization [facility] Address [address] [facility] Attn: Epic Prelude ADT [place]DA [place] [address] Care Team Providers Care Thrill Performer Name Role Phone Unavailable Primary Care Provider Unavailabl e Social History Tobacco Use Types Packs/Day Years Used Date Smoking Tobacco: Never Assessed Comments Unknown Sex and Gender Information Value Date Recorded Sex Assigned at Not on file Legal Sex Female 4:11 AM MANAGER PACKAGING Gender Identity Not on file Sexual Orientation Not on file Plan of Treatment Health Maintenance Due Date Last Done Comments DTAP/TDAP/TD VACCINES (1 - Tdap) 1966 PNEUMOCOCCAL VACCINE 50+ YEARS (1 of 1 - PCV) 03/26/19 97 ZOSTER VACCINE (1 of 2) 1997 OSTEOPOROSIS SCREENING 2012 RSV VACCINE (60+ or ) (1 - 1-dose 75+ series) 2022 INFLUENZA VACCINE (#1) 2024
--- OUTSIDE RECORDS SUMMARY | 2025-03-11 08:31 | XMS_ITS | Clinical Summary ---
Author Organization [facility] [employer] Address [address] [place] [address] Care Team Providers Care High Pressure Cleaner Name Role Phone Dixon Rice MD Primary Care Provider [phone] Leland Curry MD Unavailable [phone] Source Comments [facility] [employer],non-owned Affiliates and Associated Physician Practices is amultiple site organization consisting of ambulatory clinics and hospital sitesin [place], [place], [place] and [place]. This disclosure is being madepursuant to the Care Everywhere program and may not contain all information available regarding this patient. Last updated 18.[employer] Allergies No known active allergies Medications * Be aware that medications may not be up to date on this document. Alwaysverify current medications with the patient. pravastatin (PRAVACHOL) 20 MG tablet Take 20 mg by mouth at bedtime. Active atenolol (TENORMIN) 100 MG tablet Take 100 mg by mouth once daily. Active losartan (COZAAR) 25 MG tablet Take 25 mg by mouth once daily. Active Sulfamethoxazole -Trimethoprim (SEPTRA PO) Take 1 Tab by mouth once daily. Active spironolactone (ALDACTONE) 50 MG tablet Take 50 mg by mouth once daily. Active omeprazole (PRILOSEC) 20 MG capsule Take 20 mg by mouth daily before breakfast. Active Krill Oil (MAXIMUM RED KRILL) 300 MG CAPS Take 1 Cap by mouth once daily. Active aspirin 81 MG tablet Take 81 mg by mouth once daily. Active cetirizine (ZYRTEC ALLERGY) 10 MG gel capsule Take 10 mg by mouth once daily. Active Calcium Carbonate-Vitami n D (CALTRATE 600+D PO) Take 2 Tabs by mouth 2 times daily. Active Ascorbic Acid (VITAMIN C) 500 MG CAPS Take 1 Cap by mouth once daily. Active multivitamins (ONE A DAY) capsule Take 1 Cap by mouth once daily. Active methylPREDNISolo ne acetate (DEPO-MEDROL) 40 MG/ML injectionIndicat ions:Osteoarthro sis, unspecified whether generalized or localized, lower leg Administer on office 2 mL 0 4 Active Active Problems Problem Noted Date Diagnosed Date Osteoarthrosis involving lower leg 05/06/2014 Overview (02/17/2016): 2015 IMO Updt Essential hypertension 03/24/2014 Overview (08/24/2015): Social History Tobacco Use Types Packs/Day Years Used Date Smoking Tobacco: Unknown Alcohol Use Standard Drinks/Week Comments Not Asked 0 (1 standard drink = 0.6 oz pur e alcohol) Comments Unknown Sex and Gender Information Value Date Recorded Sex Assigned at Not on file Legal Sex Female 1:54 PM CDT Gender Identity Not on file Sexual Orientation Not on file Last Filed Vital Signs Vital Sign Reading Time Taken Comments Blood Pressure - - Pulse - - Temperature - - Respiratory Rate - - Oxygen Saturation - - Inhaled Oxygen Concentration - - Weight 117.9 kg (260 lb) 03/24/2014 3:44 PM CDT Height 176.5 cm (5' 9.5 ) 03/24/2014 3:44 PM CDT Body Mass Index 37.84 03/24/2014 3:44 PM CDT Plan of Treatment Health Maintenance Due Date Last Done Comments BONE DENSITY TESTING 1945 MEDICARE AWV 12 MONTHS 1945 HEPATITIS C SCREENING 03/21/1965 DTAP/TDAP/TD VACCINES (1 - Tdap) 1966 PNEUMOCOCCAL VACCINE 50+ (1 of 1 - PCV) 1997 ZOSTER VACCINE (1 of 2) 1997 Respiratory Syncytial Virus (RSV) Vaccine Pt: or over 60 yrs (1 - 1-dose 75+ series) 2022 COVID-19 VACCINE ( - 2023-2 5 season) 2024 DEPRESSION SCREENING 11/24/2024 INFLUENZA VACCINE (Season Ended) 2025 HEPATITIS B VACCINE Aged Out No longe r eligible based on patient's age to complete this topic HIB VACCINE Aged Out No longer eligi ble based on patient's age to complete this topic HPV VACCINE Aged Out No longer eligi ble based on patient's age to complete this topic MENINGOCOCCAL (Group B) VACC INE SHARED DECISION-MAKING Aged Out No longer eligibl e based on patient's age to complete this topic MENINGOCOCCAL GROUPS A/C/Y/W VACCINE Aged Out No longer eligible b ased on patient's age to complete this topic Insurance MEDICARE [facility] Care Teams High Pressure Cleaner Relationship Specialty Start Date End Date Dixon Rice MD PCP - General Internal Medicine 03/24/14 [place] [address] [address] [address] Orthopedic Surgery 03/24/14
== END 2025-03-11 08:28 | disposition home or self-care (01) ==
LOC: CHSIMG 08:29
PROVIDERS: PCP Internal Medicine; Visit Provider Internal Medicine
DX: Z78.0 Asymptomatic menopausal state (principal); M85.89 Other specified disorders of bone density and structure, multiple sites
CPT/HCPCS: 77080

== ENCOUNTER 2025-06-20 08:16 | Outpatient (CLI) | payer MEDICARE, SELFPAY ==
--- OUTSIDE RECORDS SUMMARY | 2025-06-20 08:21 | XMS_ITS | Clinical Summary ---
Author Organization [facility] [employer] Address [address] [place] [address] Care Team Providers Care Double Bass Player Name Role Phone Dixon Rice MD Primary Care Provider [phone] Leland Curry MD Unavailable [phone] Source Comments [facility] [employer],non-owned Affiliates and Associated Physician Practices is amultiple site organization consisting of ambulatory clinics and hospital sitesin [place], [place], [place] and [place]. This disclosure is being madepursuant to the Care Everywhere program and may not contain all information available regarding this patient. Last updated 18.[facility] [employer] Allergies No known active allergies Medications * [...] 3:44 PM CDT Height 176.5 cm (5' 9.5) 03/24/2014 3:44 PM CDT Body Mass Index 37.84 03/24/2014 3:44 PM CDT Plan of Treatment Health Maintenance Due Date Last Done Comments BONE DENSITY TESTING 1945 HEPATITIS C SCREENING 03/21/1965 DTAP/TDAP/TD VACCINES (1 - Tdap) 1966 PNEUMOCOCCAL VACCINE 50+ (1 of 1 - PCV) 1997 ZOSTER VACCINE (1 of 2) 1997 Respiratory Syncytial Virus (RSV) Vaccine Pt: or over 60 yrs (1 - 1-dose 75+ series) 2022 COVID-19 VACCINE ( - 2023-2 5 season) 2024 DEPRESSION SCREENING 11/24/2024 INFLUENZA VACCINE (#1) 2025 HEPATITIS B VACCINE Aged Out No [...] age to complete this topic Insurance MEDICARE [facility] Care Teams Double Bass Player Relationship Specialty Start Date End Date Dixon Rice MD PCP - General Internal Medicine 03/24/14 [place] [address] [address] Orthopedic Surgery 03/24/14
--- OUTSIDE RECORDS SUMMARY | 2025-06-20 08:21 | XMS_ITS | Clinical Summary ---
Author Organization [facility] Address [address] [place] [address] Care Team Providers Care Vacuum Bottle Assembler Name Role Phone Dixon Milner MD Primary Care Provider [phone] Janette Morel MD Unavailable Allergies No known active allergies [...] reflux disease) Hyperlipidemia Hypertension Mitral valve prolapse Family History Relation Status Comments Father Mother [...] CDT Gender Identity Female 11/07/2021 12:17 PM GINNER Sexual Orientation Straight 11/07/2021 12 :17 PM GINNER Occupation Industry Job Start Date Job End Date Not on file Not on file Not on file Not on file Last Filed Vital Signs Vital Sign Reading Time Taken Comments Blood Pressure 122/58 01/03/2025 11:53 AM GINNER Pulse 58 01/03/2025 11:52 AM GINNER Temperature - - Respiratory Rate 16 01/03/2025 11:52 AM GINNER Oxygen Saturation 98% 01/03/2025 11:52 AM GINNER Inhaled Oxygen Concentration - - Weight 106.6 kg (235 lb) 01/03/2025 11:52 AM GINNER Height 172.7 cm (5' 8) 01/03/2025 11:52 AM GINNER Body Mass Index 35.73 01/03/2025 11:52 AM GINNER Plan of Treatment Upcoming Encounters Date Type Department Care Team (Late st Contact Info) Description 12/28/2025 1:[address] [facility] [address] [place] [address] Janette Morel MD [address] [place], [place] [id number] 01/16/2026 12:00 PM GINNER Office Visit [facility] [place] [address] Janette Morel MD [address] [place] [address] Health Maintenance Due Date Last Done Comments [...] - 2023-2 5 season) 2024 PHQ-2 (Physician [place]) 11/24/2024 Dexa Scan (General) Completed 12/16/2022 Meningococcal [...] Procedure Name Priority Date/Time Associated Diagnosis Comments BONE DENSITY/DEXA Routine 12/16/2022 2:2 0 PM GINNER Osteoporosis, post-menopausal from Last 3 Months or Most Recently Relevant to Health Maintenance Results * BONE DENSITY/DEXA (12/16/2022 2:20 PM GINNER) Anatomical Region Laterality Modality Bone Bone Density 12/16/2022 11:3 0 PM GINNER Impressions 12/16/2022 11:33 PM GINNER IMPRESSION: WHO Classification: Osteopenia RECOMMENDATIONS: All patients [...] 12/16/2022 11:30 PM Narrative 12/16/2022 11:33 PM GINNER EXAMINATION: BONE DENSITY/DEXA INDICATIONS: M 81.0; postmenopausal [...] Most Recently Relevant to Health Maintenance Insurance MEDICARE [facility] [place] [address] MEDICARE Care Teams Vacuum Bottle Assembler Relationship Specialty Start Date End Date Dixon Milner MD [address] [place] [address] PCP - General INTERNAL MEDICINE 05/28/18 Janette Morel MD [address] [place] [address] Consulting Physician CARDIOVASCULAR DISEASE 05/30/24
--- OUTSIDE RECORDS SUMMARY | 2025-06-20 08:21 | XMS_ITS | Clinical Summary ---
Author Organization [facility] Address [address] [place] [address] Phone Care Team Providers Care Railcar Switchman Name Role Phone Dixon Rice MD Primary Care Provider [phone] Amilcar García MD Unavailable Allergies No known [...] 1 Tablet by mouth daily. Active [employer] [place]-3 Krill Oil 500 MG Capsule Take 1 [...] 07/06/2024 Hypomagnesemia 07/06/2024 Hypertension 07/06/2024 Hyperlipidemia 07/06/2024 Social History Tobacco Use Types Packs/Day Years Used Date Smoking Tobacco: Never Smokeless Tobacco: Never Tobacco Cessation:Counseling Given: Not Answered Alcohol Use Standard Drinks/Week Comments Not Currently 0 (1 standard drink = 0.6 oz pur e alcohol) [facility] Utilities Answer Date Recorded In the past 12 months has [employer], [employer], oil, or water [employer] threatened to shut off services in your home? Patient declined 07/06/2024 Social Connection and Isolation Panel Answer Date Recorded In a typical week, how many times do you talk on the phone with family, friends, or neighbors? Patient declined 07/06/2024 How often do you get togethe r with friends or relatives? Patient declined 07/06/2024 How often do you attend caodaism or religion serv ices? Patient declined 07/06/2024 Do you belong to any clubs o r organizations such as caodaism groups, unions, fraternal or athletic groups, or [...] medical care, and heating? Patient declined 07/06/2024 [facility] - Occupational Stress Questionnaire Answer Date Recorded [...] any time in the past 12 m [facility], were you homeless or living in a long-term (including now)? Patient declined 07/06/2024 Comments No [...] 2:52 PM CDT Height 175.3 cm (5' 9) 09/10/2024 2:52 PM CDT Body Mass Index 34.56 09/10/2024 2:52 PM CDT Plan of Treatment Health Maintenance Due Date Last Done Comments Hepatitis C Virus (HCV) Screening 1945 TdaP Immunization 1945 Pneumococcal Immunization (50+ years) (2 of 2 - PPSV23) 09/21/2016 09/21/2015 SARS-COV-2 Immunization ( season) 2024 08/28/2021, 01/19/2021, 12/29/2020 DEXA Bone Density 12/16/2024 12/16/2022 Influenza Immunization (#1) 2025 1007/2024, 08/06/2023, 08/27/2022, Additional history exists Zoster Immunization Completed 07/23/2019, 9 Respiratory Syncytial Virus (RSV) Immunization (Adult) Completed 09/01/2024 Hepatitis B Immunization Aged Out No longer eligible based on patient's age to complete this topic Human Papillomavirus (HPV) Immunization Aged Out No longer eligible based on patient's age to complete this topic Meningococcal Immunization (ACWY) Aged Out No longer eligible based on patient's age to complete this topic Rotavirus Immunization Aged Out No lo nger eligible based on patient's age to complete this topic Insurance MEDICARE [facility] Advance Directives * Full Code (Latest Code Status on File) Date Activated Date Inactivated Comments 07/06/2024 2:34 PM CPR-Full Treat ment: FULL ARREST: Attempt Resuscitation/CPR wit intubation and mechanical ventilation. PRE-ARREST: Use entire range of life support measures to stabilize the patient. Care Teams Railcar Switchman Relationship Specialty Start Date End Date Dixon Rice MD [address] [place] [address] PCP - General Internal Medicine 07/06/24 Amilcar García MD [address] [address] Consulting Physician Clinical Cardiac Electrophysiology 09/06/24
--- OUTSIDE RECORDS SUMMARY | 2025-06-20 08:21 | XMS_ITS | Encounter Summary ---
Author Organization [facility] Address [address] [place] [address] Care Team Providers Care Sash Clamp Operator Name Role Phone Unavailable Primary Care Provider Unavailabl e Encounter Details Date Type Department Care Team (Late st Contact Info) Description 01/13/[address] [facility] Kj Rahman MD [address] [facility] [address] [place] [address] Social History Tobacco Use Types Packs/Day Years Used Date Smoking Tobacco: Never Assessed Comments Unknown Sex and Gender Information Value Date Recorded Sex Assigned at Not on file Legal Sex Female 4:11 AM GEOTHERMAL OPERATING ENGINEER Gender Identity Not on file Sexual Orientation Not on file documented as of this encounter Plan of Treatment Not on file documented as of this encounter Visit Diagnoses Not on filedocumented in this encounter
--- OUTSIDE RECORDS SUMMARY | 2025-06-20 08:21 | XMS_ITS | Clinical Summary ---
Author Organization [facility] Address [address] Attn: Epic Prelude ADT [place] [address] Care Team Providers Care Director Strategic Planning Name Role Phone Unavailable Primary Care Provider Unavailabl e Social History Tobacco Use Types Packs/Day Years Used Date Smoking Tobacco: Never Assessed Comments Unknown Sex and Gender Information Value Date Recorded Sex Assigned at Not on file Legal Sex Female 4:11 AM INSIDE SALES COORDINATOR Gender Identity Not on file Sexual Orientation Not on file Plan of Treatment Health Maintenance Due Date Last Done Comments DTAP/TDAP/TD VACCINES (1 - Tdap) 1966 PNEUMOCOCCAL VACCINE 50+ YEARS (1 of 1 - PCV) 03/26/19 97 ZOSTER VACCINE (1 of 2) 1997 OSTEOPOROSIS SCREENING 2012 RSV VACCINE (60+ or ) (1 - 1-dose 75+ series) 2022 INFLUENZA VACCINE (#1) 2025
--- OUTSIDE RECORDS SUMMARY | 2025-06-20 08:21 | XMS_ITS | Encounter Summary ---
Author Organization [facility] Address [address] [place] [address] Care Team Providers Care Top Dyeing Machine Loader Name Role Phone Unavailable Primary Care Provider Unavailabl e Encounter Details Date Type Department Care Team (Late st Contact Info) Description 01/08/2000 Outpatient Historical HIS [facility] Kj Rahman MD [address] [facility] [address] [place] [address] Social History Tobacco Use Types Packs/Day Years Used Date Smoking Tobacco: Never Assessed Comments Unknown Sex and Gender Information Value Date Recorded Sex Assigned at Not on file Legal Sex Female 4:11 AM ORTHOTIC AND PROSTHETIC TECHNICIAN Gender Identity Not on file Sexual Orientation Not on file documented as of this encounter Plan of Treatment Not on file documented as of this encounter Visit Diagnoses Not on filedocumented in this encounter
--- OUTSIDE RECORDS SUMMARY | 2025-06-20 08:21 | XMS_ITS | Encounter Summary ---
Author Organization [facility] Address [address] [place] [address] Care Team Providers Care Director Of Publications Name Role Phone Unavailable Primary Care Provider Unavailabl e Encounter Details Date Type Department Care Team (Late st Contact Info) Description 06/26/1999 Outpatient Historical HIS [facility] Kj Rahman MD [address] [facility] [address] [place] [address] Social History Tobacco Use Types Packs/Day Years Used Date Smoking Tobacco: Never Assessed Comments Unknown Sex and Gender Information Value Date Recorded Sex Assigned at Not on file Legal Sex Female 4:11 AM CO FOUNDER AND CEO Gender Identity Not on file Sexual Orientation Not on file documented as of this encounter Plan of Treatment Not on file documented as of this encounter Visit Diagnoses Not on filedocumented in this encounter
[2025-06-20 08:31] LABS: Add Urine Microscopic? NO; Appearance Urine Clear (Clear); Glucose Urine UA Negative (Negative); Hematocrit 42.6 % (35.0-42.0); Hemoglobin 14.0 g/dL (11.7-13.8); Immature Granulocyte Percent A 0.2 % (0.0-0.0); Leukocyte Esterase Ur Negative LEU/UL (Negative); Lymphocytes Absolute Auto 1.83 K/mm3 (1.10-4.50); Mean Corpuscular HGB Conc 32.9 g/dL (32-36); Mean Corpuscular Hemoglobin 30.1 pg (27.0-31.0); Mean Corpuscular Volume 91.6 fL (78.0-102.0); Nitrate Urine Negative (Negative); Nucleated Red Blood Cells Absolute Auto 0.00 K/mm3 (0.00-0.00); Nucleated Red Blood Cells Perc 0.0 % (0-0.0); Platelet Count Result 256 K/mm3 (150-420); Red Blood Count 4.65 M/mm3 (4.20-5.40); Specific Grav Ur <= 1.005 (1.010-1.020); White Blood Count 5.3 K/mm3 (4.8-10.8)
[2025-06-20 08:52] LABS: Hemoglobin A1C 5.5 % (<5.7)
[2025-06-20 09:01] LABS: Alanine Aminotransferase 30 U/L (6-35); Albumin Level 4.1 g/dL (3.5-5.1); Alkaline Phosphatase 51 U/L (38-126); Anion Gap 2 mmol/L (4-12); Aspartate Amino Transferase 34 U/L (14-36); Bilirubin,Total 0.9 mg/dL (0.2-1.3); Blood Urea Nitrogen 15 mg/dL (7-17); Calcium 9.4 mg/dL (8.4-10.2); Carbon Dioxide 30 mmol/L (22-30); Chloride 108 mmol/L (98-107); Cholesterol 196 mg/dL (0-200); Creatine Kinase 61 U/L (30-135); Estimated Glomerular Filt Rate > 60; Glucose 94 mg/dL (65-110); HDL Direct 74 mg/dL; Osmolality Calculated 290 mOsm/kg (285-295); Potassium 4.2 mmol/L (3.4-5.0); Sodium 140 mmol/L (137-145); Total Protein 6.5 g/dL (6.3-8.2); Triglycerides 52 mg/dL (<150)
[2025-06-20 09:10] LABS: NT Pro B Type Natriuretic Pept 214 pg/mL (19.9-100)
[2025-06-20 09:18] LABS: Free T4 Free Thyroxine 1.12 ng/dL (0.78-2.19)
[2025-06-20 09:19] LABS: Free T3 3.21 pg/mL (2.18-3.98)
[2025-06-20 09:32] LABS: Thyroid Stimulating Hormone 2.220 uIU/mL (0.465-4.680)
== END 2025-06-20 08:17 | disposition home or self-care (01) ==
LOC: CHSLAB 08:18
PROVIDERS: PCP Internal Medicine; Visit Provider Internal Medicine
DX: M81.0 Age-related osteoporosis without current pathological fracture (principal); I10 Essential (primary) hypertension; E78.2 Mixed hyperlipidemia; R73.01 Impaired fasting glucose; E04.2 Nontoxic multinodular goiter; N39.41 Urge incontinence; R06.00 Dyspnea, unspecified
CPT/HCPCS: 36415; 80053; 80061; 81003; 82550; 83036; 83880; 84439; 84443; 84481; 85025

== ENCOUNTER 2025-06-29 14:52 | Outpatient (CLI) | payer MEDICARE, SELFPAY ==
--- OUTSIDE RECORDS SUMMARY | 2025-06-29 15:01 | XMS_ITS | Clinical Summary ---
Author Organization [facility] Address [address] [place] [address] Care Team Providers Care Attractions Associate Name Role Phone Dixon Rice MD Primary Care Provider [phone] Leland Curry MD Unavailable [phone] Source Comments [facility],non-owned Affiliates and Associated Physician Practices is amultiple site organization consisting of ambulatory clinics and hospital sitesin [place], [place], [place] and [place]. This disclosure is being madepursuant to the Care Everywhere program and may not contain all information available regarding this patient. Last updated 18.[employer] [facility] Allergies No known active allergies Medications * [...] age to complete this topic Insurance MEDICARE [facility] Care Teams Attractions Associate Relationship Specialty Start Date End Date Dixon Rice MD PCP - General Internal Medicine 03/24/14 [place] [address] [address] Orthopedic Surgery 03/24/14
--- OUTSIDE RECORDS SUMMARY | 2025-06-29 15:01 | XMS_ITS | Clinical Summary ---
Author Organization [facility] Address [address] [place] [address] Care Team Providers Care Microsoft Access Developer Name Role Phone Dixon Milner MD Primary Care Provider [phone] Janette Morel MD Unavailable Allergies No known [...] CDT Gender Identity Female 11/07/2021 12:17 PM BOAT DESIGNER Sexual Orientation Straight 11/07/2021 12 :17 PM BOAT DESIGNER Occupation Industry Job Start Date Job End Date Not on file Not on file Not on file Not on file Last Filed Vital Signs Vital Sign Reading Time Taken Comments Blood Pressure 122/58 01/03/2025 11:53 AM BOAT DESIGNER Pulse 58 01/03/2025 11:52 AM BOAT DESIGNER Temperature - - Respiratory Rate 16 01/03/2025 11:52 AM BOAT DESIGNER Oxygen Saturation 98% 01/03/2025 11:52 AM BOAT DESIGNER Inhaled Oxygen Concentration - - Weight 106.6 kg (235 lb) 01/03/2025 11:52 AM BOAT DESIGNER Height 172.7 cm (5' 8) 01/03/2025 11:52 AM BOAT DESIGNER Body Mass Index 35.73 01/03/2025 11:52 AM BOAT DESIGNER Plan of Treatment Upcoming Encounters Date Type Department Care Team (Late st Contact Info) Description 12/28/2025 1:00 [address]oint[address] [facility] [address] [place] [address] Janette Morel MD [address] [place], [place] [id number] 01/16/2026 12:00 PM BOAT DESIGNER Office Visit [facility] [place] [address] Janette Morel MD [address] [place] [address] Health Maintenance Due Date Last Done Comments [...] - 2023-2 5 season) 2024 PHQ-2 (Physician [place]) 11/24/2024 Dexa Scan (General) Completed 12/16/2022 Meningococcal [...] BONE DENSITY/DEXA Routine 12/16/2022 2:2 0 PM BOAT DESIGNER Osteoporosis, post-menopausal from Last 3 Months or Most Recently Relevant to Health Maintenance Results * BONE DENSITY/DEXA (12/16/2022 2:20 PM BOAT DESIGNER) Anatomical Region Laterality Modality Bone Bone Density 12/16/2022 11:3 0 PM BOAT DESIGNER Impressions 12/16/2022 11:33 PM BOAT DESIGNER IMPRESSION: WHO Classification: Osteopenia RECOMMENDATIONS: All patients [...] 12/16/2022 11:30 PM Narrative 12/16/2022 11:33 PM BOAT DESIGNER EXAMINATION: BONE DENSITY/DEXA INDICATIONS: M 81.0; postmenopausal [...] Recently Relevant to Health Maintenance Insurance MEDICARE [facility] [place] [address] MEDICARE Care Teams Microsoft Access Developer Relationship Specialty Start Date End Date Dixon Milner MD [address] [place] [address] PCP - General INTERNAL MEDICINE 05/28/18 Janette Morel MD [address] [place] [address] Consulting Physician CARDIOVASCULAR DISEASE 05/30/24
--- OUTSIDE RECORDS SUMMARY | 2025-06-29 15:01 | XMS_ITS | Clinical Summary ---
Author Organization [facility] Address [address] [place] [address] Phone Care Team Providers Care Bun Machine Operator Name Role Phone Dixon Rice MD Primary Care Provider [phone] Amilcar García MD Unavailable Allergies No known [...] 1 Tablet by mouth daily. Active MegaRed [place]-3 Krill Oil 500 MG Capsule Take 1 [...] drink = 0.6 oz pur e alcohol) [facility] Utilities Answer Date Recorded In the past 12 months has [employer], [employer], oil, or water [employer] threatened to shut off services in your home? Patient declined 07/06/2024 Social Connection and Isolation Panel Answer Date Recorded In a typical week, how many times do you talk on the phone with family, friends, or neighbors? Patient declined 07/06/2024 How often do you get togethe r with friends or relatives? Patient declined 07/06/2024 How often do you attend presybeterian or lutheran serv ices? Patient declined 07/06/2024 Do you belong to any clubs o r organizations such as presybeterian groups, unions, fraternal or athletic groups, or [...] medical care, and heating? Patient declined 07/06/2024 [facility] of Occupat ional [facility] - Occupational Stress Questionnaire Answer Date Recorded [...] any time in the past 12 m [facility], were you homeless or living in a alf (including now)? Patient declined 07/06/2024 Comments No [...] Immunization (50+ years) (2 of 2 - PCV20 or PCV21) 09/21/2016 09/21/2015 SARS-COV-2 Immunization ( season) 2024 08/28/2021, 01/19/2021, 12/29/2020 DEXA Bone Density 12/16/2024 12/16/2022 Influenza Immunization (#1) 2025 10/0 07/2024, 08/06/2023, 08/27/2022, Additional history exists Zoster Immunization [...] age to complete this topic Insurance MEDICARE [facility] Advance Directives * Full Code (Latest Code Status on File) Date Activated Date Inactivated Comments 07/06/2024 2:34 PM CPR-Full Treat ment: FULL ARREST: Attempt Resuscitation/CPR wit intubation and mechanical ventilation. PRE-ARREST: Use entire range of life support measures to stabilize the patient. Care Teams Bun Machine Operator Relationship Specialty Start Date End Date Dixon Rice MD [address] [place] [address] PCP - General Internal Medicine 07/06/24 Amilcar García MD #2 [facility], [address] [address] Consulting Physician Clinical Cardiac Electrophysiology 09/06/24
--- OUTSIDE RECORDS SUMMARY | 2025-06-29 15:01 | XMS_ITS | Encounter Summary ---
Author Organization [facility] Address [address] [place] [address] Care Team Providers Care Estimating Manager Name Role Phone Unavailable Primary Care Provider Unavailabl e Encounter Details Date Type Department Care Team (Late st Contact Info) Description 01/08/[address] [facility] Kj Rahman MD [address] [facility] [address] [place] [address] Social History Tobacco Use Types Packs/Day Years Used Date Smoking Tobacco: Never Assessed Comments Unknown Sex and Gender Information Value Date Recorded Sex Assigned at Not on file Legal Sex Female 4:11 AM METAL WASHING MACHINE OPERATOR Gender Identity Not on file Sexual Orientation Not on file documented as of this encounter Plan of Treatment Not on file documented as of this encounter Visit Diagnoses Not on filedocumented in this encounter
--- OUTSIDE RECORDS SUMMARY | 2025-06-29 15:01 | XMS_ITS | Encounter Summary ---
Author Organization [facility] Address [address] [place] [address] Care Team Providers Care Skiver Uppers Or Linings Name Role Phone Unavailable Primary Care Provider Unavailabl e Encounter Details Date Type Department Care Team (Late st Contact Info) Description 06/26/1999 Outpatient Historical HIS [facility] Kj Rahman MD [address] [facility] [address] [place] [address] Social History Tobacco Use Types Packs/Day Years Used Date Smoking Tobacco: Never Assessed Comments Unknown Sex and Gender Information Value Date Recorded Sex Assigned at Not on file Legal Sex Female 4:11 AM AVIATION ALL SOURCE INTELLIGENCE Gender Identity Not on file Sexual Orientation Not on file documented as of this encounter Plan of Treatment Not on file documented as of this encounter Visit Diagnoses Not on filedocumented in this encounter
--- OUTSIDE RECORDS SUMMARY | 2025-06-29 15:01 | XMS_ITS | Clinical Summary ---
Author Organization [facility] Address [address] [facility] [address] Attn: Epic Prelude ADT [place] [address] Care Team Providers Care Cottage Cheese Maker Name Role Phone Unavailable Primary Care Provider Unavailabl e Social History Tobacco Use Types Packs/Day Years Used Date Smoking Tobacco: Never Assessed Comments Unknown Sex and Gender Information Value Date Recorded Sex Assigned at Not on file Legal Sex Female 4:11 AM COMMUNICATIONS STATION MANAGER Gender Identity Not on file Sexual [...]
--- OUTSIDE RECORDS SUMMARY | 2025-06-29 15:01 | XMS_ITS | Encounter Summary ---
Author Organization [facility] Address [address] [place] [address] Care Team Providers Care Media Professional Name Role Phone Unavailable Primary Care Provider Unavailabl e Encounter Details Date Type Department Care Team (Late st Contact Info) Description 01/13/2001 Outpatient Historical HIS [facility] Kj Rahman MD [address] [facility] [address] [place] [address] Social History Tobacco Use Types Packs/Day Years Used Date Smoking Tobacco: Never Assessed Comments Unknown Sex and Gender Information Value Date Recorded Sex Assigned at Not on file Legal Sex Female 4:11 AM ORDER ENTRY REPRESENTATIVE Gender Identity Not on file Sexual Orientation Not on file documented as of this encounter Plan of Treatment Not on file documented as of this encounter Visit Diagnoses Not on filedocumented in this encounter
[2025-06-29 15:05] LABS: Hematocrit 42.4 % (35.0-42.0); Hemoglobin 13.8 g/dL (11.7-13.8); Mean Corpuscular HGB Conc 32.5 g/dL (32-36); Mean Corpuscular Hemoglobin 30.2 pg (27.0-31.0); Mean Corpuscular Volume 92.8 fL (78.0-102.0); Platelet Count Result 250 K/mm3 (150-420); Red Blood Count 4.57 M/mm3 (4.20-5.40); White Blood Count 6.8 K/mm3 (4.8-10.8)
[2025-06-29 15:28] LABS: Anion Gap 6 mmol/L (4-12); Blood Urea Nitrogen 17 mg/dL (7-17); Calcium 10.0 mg/dL (8.4-10.2); Carbon Dioxide 28 mmol/L (22-30); Chloride 105 mmol/L (98-107); Estimated Glomerular Filt Rate > 60; Glucose 109 mg/dL (65-110); Magnesium 2.1 mg/dL (1.6-2.3); Osmolality Calculated 290 mOsm/kg (285-295); Potassium 4.2 mmol/L (3.4-5.0); Sodium 139 mmol/L (137-145)
[2025-06-29 15:45] LABS: Free T3 3.30 pg/mL (2.18-3.98)
[2025-06-29 15:46] LABS: Free T4 Free Thyroxine 1.23 ng/dL (0.78-2.19)
[2025-06-29 16:00] LABS: Thyroid Stimulating Hormone 1.770 uIU/mL (0.465-4.680)
== END 2025-06-29 14:53 | disposition home or self-care (01) ==
PROVIDERS: PCP Internal Medicine; Visit Provider Internal Medicine
DX: I48.91 Unspecified atrial fibrillation (principal); R00.1 Bradycardia, unspecified
CPT/HCPCS: 36415; 80048; 83735; 84439; 84443; 84481; 85027

== ENCOUNTER 2025-07-04 13:57 | Outpatient (CLI) | payer MEDICARE, SELFPAY ==
--- OUTSIDE RECORDS SUMMARY | 2025-07-04 14:14 | XMS_ITS | Clinical Summary ---
Author Organization [facility] Address [address] [place] [address] Care Team Providers Care Infrastructure Security Architect Name Role Phone Dixon Milner MD Primary Care Provider [phone] Janette Morel MD Unavailable Allergies No known [...] CDT Gender Identity Female 11/07/2021 12:17 PM BELT GLASS SANDER Sexual Orientation Straight 11/07/2021 12 :17 PM BELT GLASS SANDER Occupation Industry Job Start Date Job End Date Not on file Not on file Not on file Not on file Last Filed Vital Signs Vital Sign Reading Time Taken Comments Blood Pressure 122/58 01/03/2025 11:53 AM BELT GLASS SANDER Pulse 58 01/03/2025 11:52 AM BELT GLASS SANDER Temperature - - Respiratory Rate 16 01/03/2025 11:52 AM BELT GLASS SANDER Oxygen Saturation 98% 01/03/2025 11:52 AM BELT GLASS SANDER Inhaled Oxygen Concentration - - Weight 106.6 kg (235 lb) 01/03/2025 11:52 AM BELT GLASS SANDER Height 172.7 cm (5' 8) 01/03/2025 11:52 AM BELT GLASS SANDER Body Mass Index 35.73 01/03/2025 11:52 AM BELT GLASS SANDER Plan of Treatment Upcoming Encounters Date Type Department Care Team (Late st Contact Info) Description 12/28/2025 1:00 PM BELT GLASS SANDER Appointment [facility] [address] [place] [address] Janette Morel MD [address] [place], [place] [id number] 01/16/2026 12:00 PM BELT GLASS SANDER Office Visit [facility] [place] [address] Janette Morel MD [address] [place] [address] Health Maintenance Due Date Last Done Comments [...] - 2023-2 5 season) 2024 PHQ-2 (Physician [place]) 11/24/2024 Dexa Scan (General) Completed 12/16/2022 Meningococcal [...] BONE DENSITY/DEXA Routine 12/16/2022 2:2 0 PM BELT GLASS SANDER Osteoporosis, post-menopausal from Last 3 Months or Most Recently Relevant to Health Maintenance Results * BONE DENSITY/DEXA (12/16/2022 2:20 PM BELT GLASS SANDER) Anatomical Region Laterality Modality Bone Bone Density 12/16/2022 11:3 0 PM BELT GLASS SANDER Impressions 12/16/2022 11:33 PM BELT GLASS SANDER IMPRESSION: WHO Classification: Osteopenia RECOMMENDATIONS: All patients [...] 12/16/2022 11:30 PM Narrative 12/16/2022 11:33 PM BELT GLASS SANDER EXAMINATION: BONE DENSITY/DEXA INDICATIONS: M 81.0; postmenopausal [...] Recently Relevant to Health Maintenance Insurance MEDICARE [facility] [place] [address] MEDICARE Care Teams Infrastructure Security Architect Relationship Specialty Start Date End Date Dixon Milner MD [address] [place] [address] PCP - General INTERNAL MEDICINE 05/28/18 Janette Morel MD [address] [place] [address] Consulting Physician CARDIOVASCULAR DISEASE 05/30/24
--- OUTSIDE RECORDS SUMMARY | 2025-07-04 14:14 | XMS_ITS | Clinical Summary ---
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
--- OUTSIDE RECORDS SUMMARY | 2025-07-04 14:14 | XMS_ITS | Clinical Summary ---
Author Organization [facility] [employer] Address [address] [place] [address] Care Team Providers Care Manufacturing Engineering Intern Name Role Phone Dixon Rice MD Primary Care Provider [phone] Leland Curry MD Unavailable [phone] Source Comments [facility] [employer]non-owned Affiliates and Associated Physician Practices is amultiple site organization consisting of ambulatory clinics and hospital sitesin [place], [place], [place] and [place]. This disclosure is being madepursuant to the Care Everywhere program and may not contain all information available regarding this patient. Last updated 18.[employer] Allergies No known active allergies Medications * [...] age to complete this topic Insurance MEDICARE [facility] Care Teams Manufacturing Engineering Intern Relationship Specialty Start Date End Date Dixon Rice MD PCP - General Internal Medicine 03/24/14 [place] [address] [address] Orthopedic Surgery 03/24/14
--- OUTSIDE RECORDS SUMMARY | 2025-07-04 14:14 | XMS_ITS | Encounter Summary ---
Author Organization [facility] Address [address] [place] [address] Care Team Providers Care Aircraft Line Assembler Name Role Phone Unavailable Primary Care Provider Unavailabl e Encounter Details Date Type Department Care Team (Late st Contact Info) Description 06/26/1999 Outpatient Historical [facility] Kj Rahman MD [address] [facility] [address] [place] [address] Social History Tobacco Use Types Packs/Day Years Used Date Smoking Tobacco: Never Assessed Comments Unknown Sex and Gender Information Value Date Recorded Sex Assigned at Not on file Legal Sex Female 4:11 AM BUNCH BREAKER Gender Identity Not on file Sexual Orientation Not on file documented as of this encounter Plan of Treatment Not on file documented as of this encounter Visit Diagnoses Not on filedocumented in this encounter
--- OUTSIDE RECORDS SUMMARY | 2025-07-04 14:14 | XMS_ITS | Encounter Summary ---
Author Organization [facility] Address [address] [place] [address] Care Team Providers Care Fbi Special Agent Name Role Phone Unavailable Primary Care Provider Unavailabl e Encounter Details Date Type Department Care Team (Late st Contact Info) Description 01/13/[address] [facility] Kj Rahman MD [address] [facility] [address] [place] [address] Social History Tobacco Use Types Packs/Day Years Used Date Smoking Tobacco: Never Assessed Comments Unknown Sex and Gender Information Value Date Recorded Sex Assigned at Not on file Legal Sex Female 4:11 AM PRICE LISTER Gender Identity Not on file Sexual Orientation Not on file documented as of this encounter Plan of Treatment Not on file documented as of this encounter Visit Diagnoses Not on filedocumented in this encounter
--- OUTSIDE RECORDS SUMMARY | 2025-07-04 14:14 | XMS_ITS | Encounter Summary ---
Author Organization [facility] Address [address] [place] [address] Care Team Providers Care Glove Machine Operator Name Role Phone Unavailable Primary Care Provider Unavailabl e Encounter Details Date Type Department Care Team (Late st Contact Info) Description 01/08/2000 Outpatient Historical HIS [facility] Kj Rahman MD [address] [facility] [address] [place] [address] Social History Tobacco Use Types Packs/Day Years Used Date Smoking Tobacco: Never Assessed Comments Unknown Sex and Gender Information Value Date Recorded Sex Assigned at Not on file Legal Sex Female 4:11 AM LABORATORY CHEMIST Gender Identity Not on file Sexual Orientation Not on file documented as of this encounter Plan of Treatment Not on file documented as of this encounter Visit Diagnoses Not on filedocumented in this encounter
--- OUTSIDE RECORDS SUMMARY | 2025-07-04 14:14 | XMS_ITS | Clinical Summary ---
Author Organization [facility] Address [address] [place] [address] Phone Care Team Providers Care Clinical Rehabilitation Coordinator Name Role Phone Dixon Rice MD Primary Care Provider [phone] Amilcar García MD Unavailable Allergies No known [...] 1 Tablet by mouth daily. Active MegaRed [place]-3 Krill Oil 500 MG Capsule Take 1 [...] drink = 0.6 oz pur e alcohol) [facility] Utilities Answer Date Recorded In the past 12 months has [employer], [employer], oil, or water [employer] threatened to shut off services in your home? Patient declined 07/06/2024 Social Connection and Isolation Panel Answer Date Recorded In a typical week, how many times do you talk on the phone with family, friends, or neighbors? Patient declined 07/06/2024 How often do you get togethe r with friends or relatives? Patient declined 07/06/2024 How often do you attend jewish or worship serv ices? Patient declined 07/06/2024 Do you belong to any clubs o r organizations such as jewish groups, unions, fraternal or athletic groups, or [...] medical care, and heating? Patient declined 07/06/2024 [facility] of Occupat ional [facility] - Occupational Stress Questionnaire Answer Date Recorded [...] any time in the past 12 m [facility], were you homeless or living in a [facility] (including now)? Patient declined 07/06/2024 Comments No [...] age to complete this topic Insurance MEDICARE [facility] Advance Directives * Full Code (Latest Code Status on File) Date Activated Date Inactivated Comments 07/06/2024 2:34 PM CPR-Full Treat ment: FULL ARREST: Attempt Resuscitation/CPR wit intubation and mechanical ventilation. PRE-ARREST: Use entire range of life support measures to stabilize the patient. Care Teams Clinical Rehabilitation Coordinator Relationship Specialty Start Date End Date Dixon Rice MD [address] [place] [address] PCP - General Internal Medicine 07/06/24 Amilcar García MD #2 [facility], [address] [address] Consulting Physician Clinical Cardiac Electrophysiology 09/06/24
--- NOTE | 2025-08-02 10:52 | WPDHOLTEREM ---
Holter/Event Monitor Holter/Event Monitor Date of procedure: 07/04/25 Holter/Event Procedure: Event Monitor Indications: atrial fibrillation Conclusion: 1. 14 days event monitor on 07/04/25. 2. Predominant rhythm is sinus rhythm. HR range 41-171 bpm; average HR 67 bpm. HR at 41 bpm was on 07/16/25 at 12:54 pm. 3. There are rare premature supraventricular complexes, rare supraventricular couplets, and rare supraventricular triplets. There are 34 episodes of supraventricular tachycardia with fastest at 171 bpm and longest lasting 16 beats. 4. There are rare premature ventricular complexes. No ventricular tachycardia. 5. No significant pauses greater than 3 seconds. 6. Patient reports 1 episode of symptom of lightheadedness which demonstrates sinus rhythm at 72 bpm changes to junctional escape rhythm at 49 bpm on 07/10/25 at 10:14 am.
== END 2025-07-04 13:58 | disposition home or self-care (01) ==
LOC: CHSCARD 13:59
PROVIDERS: PCP Internal Medicine; Visit Provider Internal Medicine
DX: I48.91 Unspecified atrial fibrillation (principal)
CPT/HCPCS: 93246

== ENCOUNTER 2025-08-28 10:04 | Emergency (ER) | payer MEDICARE, SELFPAY ==
[2025-08-28 10:19] VITALS: BP 141/81; PULSE 77; RESP 16; TEMP 36.5; O2SAT 99
--- NOTE | 2025-08-28 10:20 | ED.FEMALEGU ---
HPI - Female Genitourinary General Chief complaint: Urogenital-Female Stated complaint: UTI SYMPTOMS Source: patient and RN notes reviewed Mode of arrival: ambulatory Limitations: no limitations History of Present Illness HPI Narrative: 80-year-old female presented for complaint of burning with urination and urinary urgency leading to incontinence. Onset 0500 today. Patient has a history of UTIs and had been taking Septra prophylactically, and is currently taking Methenamine. Denies hematuria, nausea, vomiting, abdominal pain, flank pain, constipation, diarrhea, fevers or chills. Related Data Home Medications ?Medication ?Instructions ?Recorded ?Confirmed ?Last Taken ?Type aspirin 81 mg chewable tablet 81 mg PO DAILY 01/26/24 08/28/25 Unknown History atenolol 100 mg tablet 50 mg PO DAILY 01/26/24 07/06/24 02/05/24 History diltiazem HCl 180 mg 180 mg PO DAILY 01/26/24 08/28/25 Unknown History capsule,extended release 24 hr (Cardizem CD) losartan 25 mg tablet (Cozaar) 25 mg PO DAILY 01/26/24 07/06/24 Unknown History omeprazole 20 mg tablet,delayed 20 mg PO DAILY 01/26/24 08/28/25 Unknown History release potassium chloride 10 mEq 10 meq PO DAILY 01/26/24 08/28/25 Unknown History tablet,extended release pravastatin 20 mg tablet 20 mg PO HS 01/26/24 08/28/25 Unknown History spironolactone 50 mg tablet 50 mg PO DAILY 01/26/24 08/28/25 Unknown History (Aldactone) [place]-3 Krill Oil 08/28/25 Unknown History ascorbic acid (vitamin C) 500 mg 500 mg PO DAILY 08/28/25 08/28/25 Unknown History tablet (C-500) cetirizine 10 mg capsule (Zyrtec) 10 mg PO DAILY PRN allergy symptoms 08/28/25 08/28/25 Unknown History cholecalciferol (vitamin D3) 125 5,000 unit PO DAILY 08/28/25 08/28/25 Unknown History mcg (5,000 unit) tablet losartan 50 mg tablet mg 08/28/25 Unknown History magnesium oxide 250 mg PO BID 08/28/25 08/28/25 Unknown History methenamine hippurate 1 gram tablet g 08/28/25 Unknown History metoprolol succinate 25 mg mg PO 08/28/25 Unknown History tablet,extended release 24 hr multivitamin (Daily Multi-Vitamin 1 tablet PO DAILY 08/28/25 08/28/25 Unknown History tablet) rivaroxaban 20 mg tablet (Xarelto) mg 08/28/25 Unknown History Allergies Allergy/AdvReac Type Severity Reaction Status Date / Time No Known Allergies Allergy Verified 08/28/25 10:17 Review of Systems Review of Systems: CONSTITUTIONAL: Denies body aches, fever, chills, or sweats. CARDIOVASCULAR: Denies chest pain, palpitations, or edema. RESPIRATORY: Denies cough or dyspnea. GASTROINTESTINAL: Denies abdominal pain, nausea, vomiting, or diarrhea. GENITOURINARY: Reports dysuria, urgency, denies hematuria, flank pain, discharge SKIN: Denies rash MUSCULOSKELETAL: Denies back pain or myalgia. [facility] Social History Social History Smoking packs per day: 0.5 Smoking cigarettes per day: 10.0 Smoking status: Former smoker Tobacco type: cigarettes Comments At time of signature, I have reviewed and agree with nursing past medical, surgical, social and family history unless otherwise noted. Please see nursing chart for further information. There is no relevant family history pertinent to the presenting complaint Exam Narrative: GENERAL: Well-appearing and in no acute distress. ENT: Mucous membranes pink and moist. NECK: Normal AROM. Supple. CHEST: No respiratory distress. Clear to auscultation. HEART: Regular rate and rhythm. ABDOMEN: Soft, nontender, nondistended, normal active bowel sounds. No CVA tenderness. SKIN: Warm, dry, no rash. NEURO: No focal deficits. Alert and oriented x3. Gait steady. PSYCH: Normal affect. Course Course Emergency Course: Patient is aware of diagnosis, understands and agrees to treatment plan. Anticipatory guidance given. Patient agrees to follow-up as directed and is aware of reasons to seek care at the emergency department. Portions of this record may have been created with voice recognition software Level of Care: Express Care Visit Vital Signs Vital signs: Vital Signs Temperature 97.7 F 08/28/25 10:19 Pulse Rate 77 08/28/25 10:19 Respiratory Rate 16 08/28/25 10:19 Blood Pressure 141/81 H 08/28/25 10:19 Pulse Oximetry 99 08/28/25 10:19 Temperature 97.7 F 08/28/25 10:19 Pulse Rate 77 10/05/25 10:19 Respiratory Rate 16 08/28/25 10:19 Blood Pressure 141/81 H 08/28/25 10:19 Pulse Oximetry 99 08/28/25 10:19 Reviewed MDM - Female Genitourinary MDM Narrative Medical decision making narrative: Discussed physical exam findings consistent with a UTI; urine dip 3+ leuks, 3+ blood.. Pt says she has a hx of UTI; had been on Septra for prophylaxis and says Cipro does not usually work. Will send Augmentin at this time and will culture. Advised supportive measures and signs/symptoms to go to the ER. Pt is appropriate for outpt treatment and f/u. Differential Diagnosis Differential diagnosis: Likely urinary tract infection, bacterial vaginosis, vaginitis, cystitis and other Lab Data Labs: Lab Results 08/28/25 Range/Units 10:29 POC Urine Color Yellow POC Urine Clarity Cloudy POC Urine pH 6.5 POC Ur Specif Mccaskill 1.010 POC Urine Protein Negative (Negative) POC Ur Glucose (UA) Negative (Negative) POC Urine Ketones Negative (Negative) POC Urine Blood 3+ (Negative) POC Urine Nitrite Negative (Negative) POC Urine Bilirubin Negative (Negative) POC Urine Urobilinogen 0.2 POC U Leukocyte Esteras 3+ (Negative) Discharge Plan Discharge Clinical Impression: Urinary tract infection Patient Disposition: Home Condition: Stable Instructions: Antibiotic Form, Urinary Tract Infection in Women (ED) Additional Instructions: Take the antibiotic as prescribed The urine will be sent of for a culture to identify what type of bacteria is causing your infection. If the culture shows that the antibiotic will not get rid of your infection, you will be notified and a new antibiotic will be called in for you. Increase water intake you will need to follow up with your PCP, call to schedule an appointment. Go to the ER for any worsening symptoms or concerns Patient Language: Japanese Prescriptions: New amoxicillin-pot clavulanate [Augmentin] 500-125 mg tablet 1 tablet PO Q12H 7 Days Qty: 14 0RF No Action losartan 50 mg tablet metoprolol succinate 25 mg tablet extended release 24 hr PO magnesium oxide 250 mg magnesium tablet 250 mg PO BID [place]-3 Krill Oil multivitamin [Daily Multi-Vitamin] Tablet 1 tablet PO DAILY Xarelto 20 mg tablet cholecalciferol (vitamin D3) 125 mcg (5,000 unit) tablet 5,000 unit PO DAILY Zyrtec 10 mg capsule 10 mg PO DAILY PRN (Reason: allergy symptoms) ascorbic acid (vitamin C) [C-500] 500 mg tablet 500 mg PO DAILY methenamine hippurate 1 gram tablet diltiazem HCl [Cardizem CD] 180 mg capsule,extended release 24hr 180 mg PO DAILY atenolol 100 mg tablet 50 mg PO DAILY potassium chloride 10 mEq tablet extended release 10 meq PO DAILY losartan [Cozaar] 25 mg tablet 25 mg PO DAILY aspirin 81 mg Tablet,Chewable 81 mg PO DAILY pravastatin 20 mg tablet 20 mg PO HS spironolactone [Aldactone] 50 mg Tablet 50 mg PO DAILY omeprazole 20 mg Tablet,Delayed Release (Dr/Ec) 20 mg PO DAILY Follow-up/Referrals: Dixon Rice MD [Primary Care Provider, Internal Medicine]
[2025-08-28 10:32] LABS: EDUAAPPEAR Cloudy; EDUABILI Negative (Negative); EDUABLOOD 3+ (Negative); EDUACOLOR1 Yellow; EDUAGLUCOSE Negative (Negative); EDUAKETONE Negative (Negative); EDUALEUKO 3+ (Negative); EDUANITRATE Negative (Negative); EDUAPH 6.5; EDUAPROTEIN Negative (Negative); EDUASPGRAVITY 1.010; EDUAUROBILI 0.2
== END 2025-08-28 10:43 | disposition home or self-care (01) ==
PROVIDERS: Emergency Provider Nurse Practitioner Family; PCP Internal Medicine
DX: N39.0 Urinary tract infection, site not specified (principal); Z87.891 Personal history of nicotine dependence; Z79.82 Long term (current) use of aspirin; I48.91 Unspecified atrial fibrillation; I10 Essential (primary) hypertension; E78.00 Pure hypercholesterolemia, unspecified; K21.9 Gastro-esophageal reflux disease without esophagitis; M81.0 Age-related osteoporosis without current pathological fracture; H35.30 Unspecified macular degeneration
CPT/HCPCS: 81003; 87086; 99213; G0463